=== PATIENT | female | born 1970 | race Caucasian/White ===

== ENCOUNTER 2023-12-10 11:46 | Outpatient (AMB) | payer OTHER, SELFPAY ==
[2023-12-10 11:47] VITALS: BP 116/82; PULSE 84; O2SAT 96; BMI 22.2
--- NOTE | 2023-12-10 11:47 | AM.OFFWIN_ITS ---
Intake Vital Signs 3 12/10/23 11:47 Height 5 ft 4 in Weight 129 lb 6 oz BMI 22.2 BP 116/82 Blood Pressure Location Lt brachial Position Sitting Pulse 84 Pulse Source Pulse Oximeter Pulse Oximetry (%) 96 Oxygen Delivery Method Room Air Intake Visit Reasons: EP- Upper back pain and neck pain Intake Note: Pt presents to the office today for c/o upper back and neck pain that started 4 years ago but keeps flaring up. Pt states her flare up started about 2 days ago when she had to stand for about 2 hours. Patient Tobacco Use Status: Current everyday Tobacco user (Vaping) Allergies aripiprazole [From [facility]] Allergy (Severe, Unverified 12/10/23 11:50) ANAPHYLAXIS divalproex sodium [From DEPAKOTE] Allergy (Unknown, Unverified 12/10/23 11:50) UNKNOWN penicillin V Allergy (Unknown, Verified 12/10/23 11:50) Diarrhea Penicillins Adverse Reaction (Unknown, Verified 12/10/23 11:50) diarrhea From SEROQUEL Allergy (Unknown, Uncoded 12/10/23 11:50) UNKNOWN Medication List - Last Reconciled 12/10/23 by Johanny Lara MD albuterol sulfate 90 mcg/actuation 2 puffs inhalation Q6H cholecalciferol (vitamin D3) (Vitamin D3) 10 mcg PO DAILY gabapentin 800 mg PO BEDTIME hydroxyzine HCl 12.5 - 25 mg PO BEDTIME PRN lamotrigine 50 mg PO BEDTIME levothyroxine (Synthroid) 125 mcg PO DAILY lurasidone (Latuda) 120 mg PO BEDTIME montelukast 10 mg PO QPM sertraline 200 mg PO DAILY simethicone (Anti-Gas Ultra Strength) 0 mg PO sumatriptan succinate 0 mg PO topiramate 50 mg PO DAILY HPI EP- Upper back pain and neck pain 2 HPI0 Details Patient is a 53-year-old female who has a long history of upper back pain Has seen [facility] [place] as well as gone through physical therapy She was standing for 2 hours as her car was being repaired watching it and then it flared up her upper back pain Patient says that only medication that works is baclofen I have sent 30 tablets, patient was instructed to take it only at night as during the day it will make her very tired Pain is located both side around her shoulder blade There is no radiation of pain to arms. On examination she is limited with neck movement due to pain upper back. Hand investment broker is equal both side Review system reveals no difficulty walking, no bowel or bladder issues No fever no chills [facility] Social History Patient Tobacco Use Status: Current everyday Tobacco user (Vaping) Review of Systems Const All systems reviewed & are unremarkable except as noted in HPI and below Physical Exam Vital Signs: Last Vital Signs Pulse 84 12/10/23 11:47 BP 116/82 12/10/23 11:47 Pulse Ox 96 12/10/23 11:47 Oxygen Delivery Method Room Air 12/10/23 11:47 BMI result Body Mass Index 22.2 Const General: no acute distress Orientation/consciousness: patient oriented x3 Eyes General: appearance normal, both eyes and all related structures Resp Effort & Inspection: normal respiratory effort and able to speak in complete sentences Auscultation: clear to auscultation bilaterally Back/Spine/Pelvis Back/spine/pelvis image: 2 1. Site of pain, no pain with spine percussion, range of motion both shoulders intact with some difficulty, neck with limited range of motion Neuro Other: Motor sensory and vascular intact General: patient oriented x3 Psych Mental Status: mental status grossly normal Assessment & Plan Assessment & Plan (1) Upper back pain, chronic: Code(s): M54.9 - Dorsalgia, unspecified; G89.29 - Other chronic pain Plan Patient is a 53-year-old female who has a long history of upper back pain Has seen [facility] [place] as well as gone through physical therapy She was standing for 2 hours as her car was being repaired watching it and then it flared up her upper back pain Patient says that only medication that works is baclofen I have sent 30 tablets, patient was instructed to take it only at night as during the day it will make her very tired Pain is located both side around her shoulder blade There is no radiation of pain to arms. On examination she is limited with neck movement due to pain upper back. Hand investment broker is equal both side Review system reveals no difficulty walking, no bowel or bladder issues No fever no chills Medications: New 2 baclofen 10 mg PO BEDTIME 30 tabs 0RF Upper back pain Coding Level of Care Code Est Pt Level 3 (01422) Diagnoses Upper back pain, chronic M54.9; G89.29
== END 2023-12-10 12:13 | disposition home or self-care (01) ==
PROVIDERS: Visit Provider Internal Medicine
DX: M54.9 Dorsalgia, unspecified (principal); G89.29 Other chronic pain
CPT/HCPCS: 99213

== ENCOUNTER 2024-02-15 10:02 | Emergency (ER) | payer OTHER, SELFPAY ==
[2024-02-15 10:13] VITALS: BP 109/79; PULSE 83; RESP 18; TEMP 36.7; O2SAT 99; BMI 23.3
--- NOTE | 2024-02-15 11:10 | ED_ITS ---
HPI - General Adult General Chief complaint: General Medical Stated complaint: Dizziness, disoriented Time Seen by Provider: 02/15/24 11:01 Source: patient Mode of arrival: ambulatory Limitations: no limitations History of Present Illness HPI narrative: THIS IS A 52 YEARS OLD THE PATIENT PRESENTED TO THE EMERGENCY DEPARTMENT WITH A CHIEF COMPLAINT OF ANXIETY, DIZZINESS, MALAISE ACCORDING TO THE SON SHE HAS BEEN PARANOID WELL. SHE DOES HAVE A HISTORY OF BIPOLAR DISORDER AND HYPOTHYROIDISM. NO REPORTED FEVER NO REPORTED VOMITING OR DIARRHEA Onset (ago): week(s) Radiation: non-radiation Severity: mild Relieving factors: none Exacerbating factors: none Related Data Home Medications ?Medication ?Instructions ?Recorded ?Confirmed lurasidone 120 mg tablet (Latuda) 120 mg PO BEDTIME 01/07/21 12/10/23 albuterol sulfate 90 mcg/actuation 2 puff inhalation Q6H 08/04/21 12/10/23 aerosol inhaler cholecalciferol (vitamin D3) 10 10 mcg PO DAILY 08/04/21 12/10/23 mcg (400 unit) tablet (Vitamin D3) gabapentin 800 mg tablet 800 mg PO BEDTIME 08/04/21 12/10/23 hydroxyzine HCl 25 mg tablet 12.5 - 25 mg PO BEDTIME PRN 08/04/21 12/10/23 lamotrigine 25 mg tablet 50 mg PO BEDTIME 08/04/21 12/10/23 levothyroxine 125 mcg tablet 125 mcg PO DAILY 08/04/21 12/10/23 (Synthroid) montelukast 10 mg tablet 10 mg PO QPM 08/04/21 12/10/23 sertraline 100 mg tablet 200 mg PO DAILY 08/04/21 12/10/23 simethicone 180 mg capsule 0 mg PO 08/04/21 12/10/23 (Anti-Gas Ultra Strength) sumatriptan succinate 25 mg tablet 0 mg PO 08/04/21 12/10/23 topiramate 50 mg tablet 50 mg PO DAILY migraine 08/04/21 12/10/23 Previous Rx's ?Medication ?Instructions ?Recorded baclofen 10 mg tablet 10 mg PO BEDTIME Upper back pain 01/13/24 #30 tabs Allergies Allergy/AdvReac Type Severity Reaction Status Date / Time aripiprazole [From [facility]] Allergy Severe ANAPHYLAXIS Verified 02/15/24 10:16 divalproex sodium Allergy Unknown UNKNOWN Verified 02/15/24 10:16 [From DEPAKOTE] penicillin V Allergy Unknown Diarrhea Verified 02/15/24 10:16 Penicillins AdvReac Unknown diarrhea Verified 02/15/24 10:16 From SEROQUEL Allergy Unknown UNKNOWN Uncoded 12/10/23 11:50 Review of Systems 2 Constitutional: Constitutional: Reports no additional constitutional complaints Eyes: Eyes: Reports no additional eye complaints ENT: Reports system reviewed and no additional complaints, except as documented Cardiovascular: Cardiovascular: Reports no additional cardiovascular complaints Respiratory: Respiratory: Reports no additional respiratory complaints COUNT INCLUDES THE [facility] Past Medical History Attestation statement: The following information was validated with the patient. Source: unable to obtain Reminder: BIPOLAR DISORDER, HYPOTHYROIDISM Social History Social History Patient Tobacco Use Status: Current everyday Tobacco user (Vaping) Advance Directives: No Advance Directives Information Provided: Yes Physical Exam ED Vital Signs: Vital Signs - 24 hr 02/15/24 10:13 02/15/24 12:00 Temperature 98.1 F 97.4 F Pulse Rate 83 85 Respiratory Rate 18 15 Blood Pressure 109/79 110/75 Pulse Oximetry 99 98 Oxygen Delivery Method Room Air Room Air BMI result Body Mass Index 23.3 Const General: cooperative Nutritional Appearance: average body habitus Orientation/consciousness: patient oriented x3 Limitations: no limitations HENMT Head: Yes normal to inspection General nose exam: Normal external nose present Face and sinus: Yes normal facial exam Mouth: Normal oral and palatal mucosa present Throat: Yes posterior oropharynx normal Neck Neck: Yes normal visual inspection Chest Chest palpation & inspection: normal inspection of the chest Resp Effort & Inspection: normal respiratory effort Auscultation: clear to auscultation bilaterally Cardio Jugular venous distension: no JVD Rate: regular rate Rhythm: regular rhythm GI Inspection: Yes normal to inspection Palpation (GI): Soft to palpation, not firm and nontender Auscultation: normal bowel sounds Skin General skin exam: no rashes or lesions noted and elasticity normal Rashes: no rashes Neuro General: patient oriented x3 Course Reevaluation(s) Reevaluation #1: Waiting for crisis eval Time: 13:55 Reevaluation #2: Seen by crisis cleared for discharge Time: 15:00 Medications Administered Discontinued Medications Generic Name Dose Route Start Last Admin Trade Name Freq PRN Reason Stop Dose Admin Potassium Chloride 20 meq 02/15/24 11:52 02/15/24 12:10 Potassium Chloride Er 20 Meq Tab.Er.Prt PO 02/15/24 11:53 20 meq ONCE ONE Administration Medical Decision Making Differential Diagnosis Differential Diagnoses: The differential diagnosis associated with the presentation includes lytes abnormalities,anxiety/bipolar/viaral syndrome Admission/Observation Consideration of admission/observation: Escalation of care including admission/observation considered Lab Data MDM Lab Attestation statement: I reviewed the patient's lab results. 02/15/24 11:21 02/15/24 11:21 Labs: Lab Results 02/15/24 02/15/24 Range/Units 11: 13:04 WBC 6.8 (4.8-10.8) X10*3/uL RBC 3.82 L (4.20-5.50) X10*6/uL Hgb 12.0 (12.0-16.0) g/dl Hct 35.7 L (37.0-47.0) % MCV 93.5 (80.0-98.0) fL MCH 31.4 (27.0-33.0) pg MCHC 33.6 (31.0-35.0) g/dl RDW 12.9 (11.0-16.0) % Plt Count 176 (160-400) X10*3/uL MPV 11.6 (9.4-12.3) fL Immature Gran % (Auto) 0.3 (0.0-0.4) % Neut % (Auto) 62.2 (45-73) % Lymph % (Auto) 26.4 (20-40) % [place] % (Auto) 7.3 (2-11) % Eos % (Auto) 2.2 (0-4) % Baso % (Auto) 1.6 (0-2) % Lymph # (Auto) 1.8 (1.2-4.9) X10*3/uL [place] # (Auto) 0.5 (0.1-1.2) X10*3/uL Eos # (Auto) 0.2 (0.0-0.4) X10*3/uL Baso # (Auto) 0.1 (0.0-0.2) X10*3/uL Abs Immat Gran (auto) 0.02 (0.00-0.03) X10*3/uL Absolute Neuts (auto) 4.2 (2.0-8.3) x10*3/uL Absolute Nucleated RBC 0.000 (0.0-0.012) X10*3/uL Nucleated RBC % (auto) 0.0 (0.0-0.2) /100WBC Sodium 148 H (135-145) mmol/L Potassium 3.2 L (3.3-5.1) mmol/L Chloride 113 H (96-108) mmol/L Carbon Dioxide 24 (22-29) mmol/L Anion Gap 14 (12-20) BUN 10 (9-16) mg/dL Creatinine 1.11 (0.5-1.4) mg/dL Estim Creat Clear Calc 50.6 Estimated GFR 51 Random Glucose 90 (60-115) mg/dL Calcium 10.2 (8.4-10.2) mg/dL Total Bilirubin 0.1 (0.0-1.0) mg/dL AST 19 (5-31) U/L ALT 18 (0-31) U/L Alkaline Phosphatase 36 L (39-117) U/L Troponin I High Sens < 2.7 (<3.5-17.0) ng/L Total Protein 6.2 L (6.5-8.0) g/dL Albumin 4.2 (3.5-5.0) g/dL Urine Color Yellow Urine Appearance Clear Urine pH 7.0 (5.0-9.0) Ur Specific [place] <= 1.005 (1.005-1.025) Urine Protein Negative (Neg-Trace) mg/dL Urine Glucose (UA) Negative (Negative) mg/dL Urine Ketones Negative (Negative) mg/dL Urine Blood Negative (Negative) Urine Nitrite Negative (Negative) Ur Leukocyte Esterase Negative (Negative) Urine RBC 0-2 (0-2) /HPF Urine WBC 0-5 (0-5) /HPF Ur Squamous Epith Cells 0-2 (0-2) /HPF Urine Bacteria None Seen (None Seen) Hyaline Casts 0-2 (0-2) /LPF Urine Opiates Screen Not Detected (Not Detect) Ur Buprenorphine Scrn Not Detected (Not Detect) ng/mL Ur Oxycodone Screen Not Detected (Not Detect) ng/mL Urine Methadone Screen Not Detected (Not Detect) ng/mL Urine Fentanyl Screen Not Detected (Not Detect) Ur Barbiturates Screen Not Detected (Not Detect) Ur Phencyclidine Scrn Not Detected (Not Detect) Ur Amphetamines Screen Not Detected (Not Detect) U Benzodiazepines Scrn Not Detected (Not Detect) Urine Cocaine Screen Not Detected (Not Detect) U Marijuana (THC) Screen Not Detected (Not Detect) Independent Historian Clinical information obtained from an independent historian. History obtained from or confirmed by: Other (son) Chronic Conditions Patient?s care impacted by: Other (bipolar disorder) Discharge Plan Discharge Clinical Impression: Anxiety Patient Disposition: Still a Patient Instructions: Anxiety (ED) Prescriptions: No Action baclofen 10 mg tablet 10 mg PO BEDTIME Qty: 30 2RF Latuda 120 mg tablet 120 mg PO BEDTIME sumatriptan succinate 25 mg tablet 0 mg PO gabapentin 800 mg tablet 800 mg PO BEDTIME lamotrigine 25 mg tablet 50 mg PO BEDTIME hydroxyzine HCl 25 mg tablet 12.5 - 25 mg PO BEDTIME PRN cholecalciferol (vitamin D3) [Vitamin D3] 10 mcg (400 unit) tablet 10 mcg PO DAILY topiramate 50 mg tablet 50 mg PO DAILY levothyroxine [Synthroid] 125 mcg tablet 125 mcg PO DAILY simethicone [Anti-Gas Ultra Strength] 180 mg capsule 0 mg PO sertraline 100 mg tablet 200 mg PO DAILY albuterol sulfate 90 mcg/actuation HFA aerosol inhaler 2 puff inhalation Q6H montelukast 10 mg tablet 10 mg PO QPM Referrals: Kim Meade NP [Primary Care Provider] - 1 day Print Language: Liberian
--- NOTE | 2024-02-15 11:16 | PC.NURSE ---
Pt. states that she believes she is being poisoned by her prescription Synthroid
[2024-02-15 11:26] LABS: MANUAL DIFF FLAG NO
[2024-02-15 11:28] LABS: Basophils Absolute Auto 0.1 X10*3/uL (0.0-0.2); Basophils Percent Auto 1.6 % (0-2); Eosinophils Absolute Auto 0.2 X10*3/uL (0.0-0.4); Eosinophils Percent Auto 2.2 % (0-4); Hematocrit 35.7 % (37.0-47.0); Imm Gran Abs Auto 0.02 X10*3/uL (0.00-0.03); Imm Gran Pct Auto 0.3 % (0.0-0.4); Lymphocytes Absolute Auto 1.8 X10*3/uL (1.2-4.9); Lymphocytes Percent Auto 26.4 % (20-40); Mean Corpuscular HGB Conc 33.6 g/dl (31.0-35.0); Mean Corpuscular Hemoglobin 31.4 pg (27.0-33.0); Mean Corpuscular Volume 93.5 fL (80.0-98.0); Mean Platelet Volume 11.6 fL (9.4-12.3); Monocytes Absolute Auto 0.5 X10*3/uL (0.1-1.2); Monocytes Percent Auto 7.3 % (2-11); Neutrophils Absolute Auto 4.2 x10*3/uL (2.0-8.3); Neutrophils Percent Auto 62.2 % (45-73); Platelet Count 176 X10*3/uL (160-400); Red Blood Count 3.82 X10*6/uL (4.20-5.50); Red Cell Distribution Width 12.9 % (11.0-16.0); White Blood Count 6.8 X10*3/uL (4.8-10.8)
[2024-02-15 11:43] LABS: Alanine Aminotransferase 18 U/L (0-31); Albumin Level 4.2 g/dL (3.5-5.0); Alkaline Phosphatase 36 U/L (39-117); Anion Gap 14 (12-20); Aspartate Amino Transferase 19 U/L (5-31); Bilirubin Total 0.1 mg/dL (0.0-1.0); Blood Urea Nitrogen 10 mg/dL (9-16); Calcium 10.2 mg/dL (8.4-10.2); Carbon Dioxide 24 mmol/L (22-29); Chloride 113 mmol/L (96-108); Creatinine Clr Calc Pharmacy 50.6; Estimated Glomerular Filt Rate 51; Glucose Random 90 mg/dL (60-115); Potassium 3.2 mmol/L (3.3-5.1); Sodium 148 mmol/L (135-145); Total Protein 6.2 g/dL (6.5-8.0)
[2024-02-15 12:00] VITALS: BP 110/75; PULSE 85; RESP 15; TEMP 36.3; O2SAT 98
[2024-02-15] MEDS: Potassium Chloride ER 20 MEQ TAB.ER.PRT PO (12:10)
[2024-02-15 12:30] LABS: Troponin-I High Sensitivity < 2.7 ng/L (<3.5-17.0)
[2024-02-15 13:12] LABS: Appearance Urine Clear; Color Urine Yellow; Glucose Urine UA Negative (Negative); Leukocyte Esterase Urine Negative (Negative); Nitrite Urine Negative (Negative); Specific Gravity - Urine <= 1.005 (1.005-1.025); Urine Blood Negative (Negative); Urine Ketones Negative (Negative); Urine Protein Negative (Neg-Trace)
--- NOTE | 2024-02-15 13:14 | PC.NURSE ---
Pt. stating that she would like to leave at this time. Annette Coffey MD notified. asks this RN to reach out to [facility] prior to discharge to see what their thoughts are. Casi Troy aware, she is speaking with Dorothy Troy, Psych. VALLEZ FILTER OPERATOR re: pt.'s dispo.
[2024-02-15 13:22] LABS: Amphetamine Screen Urine Not Detected (Not Detect); Barbiturates, Urine Not Detected (Not Detect); Benzodiazepines Screen Urine Not Detected (Not Detect); Buprenorphine Scr Not Detected (Not Detect); Cannabinoid Screen Urine Not Detected (Not Detect); Cocaine Screen Urine Not Detected (Not Detect); Fentanyl, urine Not Detected (Not Detect); Methadone Screen, Urine Not Detected (Not Detect); Opiate Screen Urine Not Detected (Not Detect); Oxycodone Screen Urine Not Detected (Not Detect); Phencyclidine Screen Urine Not Detected (Not Detect)
[2024-02-15 13:30] LABS: Bacteria Urine None Seen (None Seen); Hyaline Casts Urine 0-2 /LPF (0-2); RBC Urine 0-2 /HPF (0-2); Squamous Epithelial Cell Urine 0-2 /HPF (0-2); WBC Urine 0-5 /HPF (0-5)
[2024-02-15 15:18] VITALS: BP 110/75; PULSE 85; RESP 15; TEMP 36.3; O2SAT 98
== END 2024-02-15 15:18 | disposition home or self-care (01) ==
PROVIDERS: Emergency Provider Emergency Medicine; PCP Nurse Practitioner Family
DX: R42 Dizziness and giddiness (principal); F41.1 Generalized anxiety disorder; F43.0 Acute stress reaction; Z51.81 Encounter for therapeutic drug level monitoring; Z79.899 Other long term (current) drug therapy
CPT/HCPCS: 36415; 80053; 80307; 81001; 84484; 85025; 99283; S9485

== ENCOUNTER 2024-04-08 06:44 | Emergency (ER) | payer OTHER, SELFPAY ==
--- NOTE | ~2024-04-08 | CT_ITS ---
CLINICAL HISTORY: Intermittent mental status change CT head without IV contrast Comparison: CT/REG/AK/SR - BRAIN WO IV CONTRAST [id number] - 01/04/2019 09:56 AM EDT Findings: The ventricles are normal in configuration. Basilar cisterns intact. No intracranial hemorrhage, mass-effect or midline shift. No extra-axial fluid collections. The parenchyma is unremarkable in attenuation. Herbert-white matter junction preserved. No evidence of acute large vessel or territorial ischemia. Brainstem and cerebellum unremarkable. The calvarium is intact. The imaged portion of the paranasal sinuses are clear. No mastoid effusions. The orbital contents are unremarkable. Impression: 1. No CT evidence of acute intracranial pathology. This document has been electronically signed by: Kyle Leavitt MD on 04/08/2024 09:59:46
--- NOTE | ~2024-04-08 | MR_ITS ---
CLINICAL HISTORY: Stroke symptoms MR Brain without gadolinium Comparison: CT - CT HEAD/BRAIN WO IV CON - 04/08/24 08:[address]/REG/OR/SR - BRAIN WO IV CONTRAST [id number] - 01/04/19 09:56 EDT Findings: No restricted diffusion. No intracranial mass or hemorrhage. No midline shift. No hydrocephalus. Vascular flow voids are intact. Orbital contents are unremarkable. The sinuses and mastoid air cells are clear. No focal bone lesion. IMPRESSION: Unremarkable brain MRI. This document has been electronically signed by: Ada Davis MD on 04/08/2024 15:02:49
--- OUTSIDE RECORDS SUMMARY | 2024-04-08 06:47 | XMS_ITS | Continuity of Care Document ---
Author Organization [employer] Address [address] [place] [address] Care Team Providers Care Business Development Officer Name Role Phone HIM CCA OTHER KEVIN ACEVEDO Primary Care Provider [phone] Assessment Encounter Date Assessment Date Assessment LastModified by Organization Details LastModified Time 03/23/2024 03/23/2024 As noted, we were called to see this patient regarding concerns of shob. Evaluation in the field was performed by my central service technician colleague, as noted above, I provided real-time direction and supervision for this visit. The evaluation revealed 53y F with COPD and 2-3d viral symptoms w cough, congestion, shob and wheezing. VSS, no WOB, no consolidation on exam. Responding to home albuteorl but wants to try neb. COVD and flu negative. Treat as COPD exacerbation. Impression: viral URI, COPD exaerbation Plan: prenisone, duoneb, albuterol neb ampules to pharmacy Primary care, consider f/u to confirm improvement in ~3-5d if able Disposition: We discussed the diagnostic uncertainty of home visits and the risk associated with this. In this case, the patient and I felt this to be an acceptable and reasonable amount of risk given the benefit of avoiding an ED visit. We discussed the need to seek care urgently/emergen tly in the setting of any new or worsening serious symptoms, particularly fever, chills, worsening shob, dizziness, chest pain, [facility] available 03/23/2024 17:52:33 Plan of Treatment Reminders Order Date Submit Date Provider Last Modified By Organization Details Last Modified Time Details Appointments None recorded. Lab None recorded. Referral None recorded. Procedures None recorded. Surgeries None recorded. Imaging None recorded. Medication Orders prednisone 20 mg tablet 2023 024 [facility] #[id number], [address], [place], [id number], 4 17:50:55 albuterol sulfate 2.5 mg/3 mL (0.083 %) solution for nebulizatio n 2023 024 [facility] #[id number], [address], [place], [id number], 4 17:51:04 albuterol sulfate 2.5 mg/3 mL (0.083 %) solution for nebulizatio n 2023 024 [facility] #[id number], [address], [place], [id number], 4 17:50:55 prednisone 20 mg tablet 2023 024 [facility] #[id number], [address], [place], [id number], 4 17:50:55 Patient TargetsNo targets recorded. Patient InstructionsNo instructions recorded. Reason for Referral None Reported. Medical Equipment None Reported. Allergies Allergen ID Allergen Name Allergen Category Reaction Reaction Severity Criticality Documentation Date Start Date Code Code System Note Provider Name and Address Organization Details Recorded Time 7471 Medicinal product containin g penicilli n and acting as antibacte rial agent (product) medicatio n Not available Not available Not available 02/08/2024 78239 05 SNOMED Not Available [facility] - production 4 03:37:45 Medications Name Sig Start Date Stop Date Status Note LastModified by Organization Details LastModified Time calcium/d3 tab 600-800 active Not Available Not Available Not Available calcium 600-vit d3 800 tablet TAKE 1 TABLET BY MOUTH TWICE A DAY active Not Available Not Available No t Available celecoxib 200 mg capsule TAKE 1 CAPSULE BY MOUTH EVERY DAY active Not Available Not Available No t Available buspirone 5 mg tablet TAKE 1 TABLET BY MOUTH EVERY DAY active Not Available Not Available No t Available prednisone 10 mg tablet TAKE 5 TABS ON DAY 1 AND DAY 2, 4 TABS ON DAY 3, 3 TABS ON DAY 4, 2 TABS ON DAY 5, 1 TAB ON DAY 6 active Not Available Not Available No t Available gabapentin 600 mg tablet TAKE 1 TABLET BY MOUTH TWICE A DAY active Not Available Not Available No t Available nabumetone 750 mg tablet TAKE 1 TABLET BY MOUTH TWICE A DAY FOR 10 DAYS active Not Available Not Available No t Available albuterol sulfate 2.5 mg/3 mL (0.083 %) solution for nebulization Inhale 3 mL 3 times a day by nebulizatio n route. active Not Available Not Available No t Available simethicone 180 mg capsule TAKE 1 CAPSULE BY MOUTH TWICE DAILY. active Not Available Not Available No t Available prazosin 1 mg capsule TAKE 1 CAPSULE BY MOUTH EVERY DAY active Not Available Not Available No t Available sumatriptan 25 mg tablet TAKE 1 TABLET BY MOUTH EVERY DAY NEEDED MIGRAINE HEADACHES active Not Available Not Available No t Available Synthroid 125 mcg tablet TAKE 1 TABLET BY MOUTH EVERY DAY active Not Available Not Available No t Available alendronate 70 mg tablet PLEASE SEE ATTACHED FOR DETAILED DIRECTIONS active Not Available Not Available N ot Available gabapentin 400 mg capsule TAKE 1 CAPSULE BY MOUTH ONCE A DAY TAKE GABAPENTIN 500 MG DAILY AND 900 MG AT BEDTIME active Not Available Not Available No t Available sertraline 100 mg tablet TAKE 1 TABLET BY MOUTH ONCE A DAY. TOTAL DAILY ZOLOFT 150 MG DAILY active Not Available Not Available No t Available clonazepam 1 mg tablet TAKE 1 TABLET BY MOUTH TWICE A DAY MAY ALSO TAKE 1/2 TAB BY MOUTH DAILY NEEDED FOR ANXIETY active Not Available Not Available Not Available risperidone 0.25 mg tablet TAKE 1 TABLET BY MOUTH TWICE A DAY active Not Available Not Available No t Available hydroxyzine HCl 50 mg tablet TAKE 1 TABLET BY MOUTH TWICE A DAY NEEDED FOR ANXIETY active Not Available Not Available No t Available olanzapine 2.5 mg tablet TAKE 1 TABLET BY MOUTH EVERYDAY AT BEDTIME active Not Available Not Available No t Available bupropion HCl SR 100 mg tablet,12 hr sustained-re lease TAKE 1 TABLET BY MOUTH ONCE DAILY. active Not Available Not Available No t Available lamotrigine 25 mg tablet TAKE 3 TABLETS BY MOUTH EVERY NIGHT active Not Available Not Available No t Available meloxicam 7.5 mg tablet TAKE 1 TABLET BY MOUTH DAILY MAY INCREASE TO 2 TABLETS IF LITTLE EFFECT, DO NOT EXCEED 15MG DAILY active Not Available Not Available N ot Available Vitamin D3 10 mcg (400 unit) tablet TAKE 1 TABLET BY MOUTH EVERY DAY active Not Available Not Available No t Available famotidine 20 mg tablet active Not Available Not Available Not Available gabapentin 800 mg tablet TAKE 1 TABLET BY MOUTH AT BEDTIME. active Not Available Not Available No t Available baclofen 10 mg tablet TAKE 1 TABLET BY MOUTH AT BEDTIME FOR UPPER BACK PAIN active Not Available Not Available No t Available diphenhydram ine 25 mg capsule TAKE 1-2 CAPSULES BY MOUTH AT BEDTIME NEEDED active Not Available Not Available No t Available montelukast 10 mg tablet TAKE 1 TABLET BY MOUTH EVERY EVENING active Not Available Not Available No t Available hydroxyzine HCl 25 mg tablet TAKE 1 TABLET BY MOUTH TWICE A DAY NEEDED FOR ANXIETY active Not Available Not Available No t Available mupirocin 2 % topical ointment APPLY A THIN FILM NARES BOTH DAILY IN THE MORNING active Not Available Not Available Not Available gabapentin 100 mg capsule TAKE 1 CAPSULE BY MOUTH TWICE A DAY GABAPENTIN 500 MG BY MOUTH DAILY AND 900 MG AT BEDTIME active Not Available Not Available N ot Available albuterol sulfate HFA 90 mcg/actuatio n aerosol inhaler INHALE 2 PUFFS INTO THE LUNGS EVERY 6 HOURS active Not Available Not Available No t Available ondansetron 4 mg disintegrati ng tablet TAKE 1 TABLET BY MOUTH EVERY 8 HOURS NEEDED FOR NAUSEA/VOMI TING active Not Available Not Available No t Available topiramate 100 mg tablet TAKE 1 TABLET BY MOUTH ONCE A DAY FOR MIGRAINES active Not Available Not Available No t Available fluticasone propionate 50 mcg/actuatio n nasal spray,suspen haylee INSTILL 1 SPRAY INTO BOTH NOSTRILS TWICE DAILY active Not Available Not Available Not Available sertraline 50 mg tablet TAKE 1 TABLET BY MOUTH ONCE A DAY. TOTAL DAILY ZOLOFT 150 MG DAILY active Not Available Not Available No t Available risperidone 1 mg tablet TAKE 1 TABLET BY MOUTH EVERY DAY AT NIGHT active Not Available Not Available No t Available lamotrigine 100 mg tablet TAKE 1 TABLET BY MOUTH EVERY DAY AT NIGHT active Not Available Not Available No t Available risperidone 0.5 mg tablet active Not Available Not Available Not Available prazosin 2 mg capsule TAKE 2 CAPSULES BY MOUTH EVERY DAY AT BEDTIME active Not Available Not Available No t Available naproxen 500 mg tablet TAKE 1 TABLET BY MOUTH TWICE A DAY active Not Available Not Available No t Available cyclobenzapr ine 5 mg tablet TAKE 1-2 TAB UP TO 2 TIMES A DAY NEEDED FOR MUSCLE SPASMS active Not Available Not Available No t Available topiramate 50 mg tablet TAKE 1 TABLET BY MOUTH ONCE A DAY FOR MIGRAINES. active Not Available Not Available N ot Available tizanidine 2 mg capsule TAKE 1 TABLET BY MOUTH TWICE A DAY NEEDED FOR MUSCLE SPASM active Not Available Not Available No t Available Vitamin D3 10 mcg (400 unit) capsule TAKE 1 CAPSULE BY MOUTH EVERY DAY active Not Available Not Available No t Available Gavilax 17 gram/dose oral powder PLEASE SEE ATTACHED FOR DETAILED DIRECTIONS active Not Available Not Available N ot Available lurasidone 80 mg tablet TAKE 1 TABLET BY MOUTH EVERY NIGHT WITH MEALS TAKE WITH LATUDA 20 MG FOR TOTAL OF 100 MG active Not Available Not Available No t Available lurasidone 20 mg tablet TAKE 1 TABLET BY MOUTH ONCE A DAY TAKE WITH LATUDA 80 MG TOTAL DAILY DOSE LATUDA 100 MG DAILY active Not Available Not Available No t Available lurasidone 120 mg tablet TAKE 1 TABLET BY MOUTH EVERY NIGHT WITH A MEAL active Not Available Not Available No t Available calcium 600 mg (as carbonate)-v itamin D3 20 mcg (800 unit) tablet TAKE 1 TABLET BY MOUTH TWICE A DAY active Not Available Not Available No t Available Stimulant Laxative Plus 8.6 mg-50 mg tablet TAKE 3 TABLETS BY MOUTH EVERY DAY AT BEDTIME active Not Available Not Available No t Available Vitals Date Recorded Oxygen saturation Oxygen saturation in Arterial blood by Pulse oximetry Heart rate Body height Respiratory rate Body weight Body temperature Systolic blood pressure Diastolic blood pressure Provider Name and Address Organization Details Last Updated DateTime 4 96 % 96 % 82 /min 162.56 cm 16 /min 04874.9 2 g 98.5 [degF] 104 mm[Hg] 76 mm[Hg] Not Available [email or web address] 4 17:45:57 Social History None recorded. Functional Status None recorded. Mental Status None recorded. Family History Nothing Reported. Medical History No medical history recorded. Gynecological HistoryNo gynecological history recorded. Obstetrics History GPAL:G 0 P 0 0 0 0 Past Encounters Encounter ID Performer Location Encounter Start Date Encounter Closed Date Diagnosis/Indication Diagnosis SNOMED-CT Code Diagnosis ICD10 Code [id number] Lory Awad MD [facility] [address] [place] [address] 03/23/2024 17:45:54 03/23/2024 22:58:00 Acute exacerbation of chronic obstructive pulmonary disease 907959119 J44.1 Viral uppe r respiratory tract infection 289600686 J06.9 Health Concerns Section Related Observation LastModified by Organization Detai ls LastModified Time None Recorded Concern Status LastModified by Organization Details LastModified Time None Recorded Payers Encounter Date Sequence Insurance Name Policy Number Policy Adkins Covered Member ID Adkins Member ID Guarantor Name 03/23/2024 1 [facility] - DOS ON OR AFTER 2022 - DUAL ELIGIBLE - [facility] [employer] AND ONE [employer] (MEDICARE REPLACEMENT/ADV ANTAGE - HMO) Susy Benavides [id number] Susy Benavides Notes Date Note Type Note Provider Name and Address Organization Details Recorded Time 03/23/2024 text/html [facility] Nurse Triage Notes (Joi Sinclair - RN): Reason For Request: pt states she has broncitis and her throat is very sore Patient Reports: Sputum increase ; Cough; Shortness of breath with exertion; Pain with inspirationDenies: Increased work of breathing/labored ? with or without fever Unable to speak in full sentences without distress Discoloration of skin -cyanosis Needs to sleep sitting up, can? t catch breath Shortness of breath in setting of confusion Cough, fever greater than 2 days Lower extremity swelling History of asthma, increased use of inhaler COPD COVID Exposure Chief Complaints: Cough, Sore throatPMH: Chronic BronchitisComments : Patient concerned she has bronchitis again. Developed productive cough 2 days ago. Increased sputum production yesterday. Patient c/o sore throat today. Patient felt like she had a fever yesterday. States she felt confused/delusiona l yesterday. Taking Dayquil/Nyquil. Report shortness of breath with talking. Unable to take a deep breath. [facility] HPI: Sub Acute Care Nurse Organization Information for Brian Saenz Business Legal Name: [employer]? ? Address: [address] [place] [address], Certified Adaptive Physical Educator: Clemente Crenshaw MD CLIA No.: [id number] Sub Acute Care Nurse POC Test Results from Brian Saenz Rapid influenza antigen (17:53:41) Flu: - Rapid COVID antigen (17:53:42) COVID: - Rapid strep test (17:53:45) Strep: - .................. .................. .................. .................. .................. .................. .................. ............... Sub Acute Care Nurse Note From Brian Saenz[facility] Pt presents complaining of 2 days of productive cough and SOB. Pt reports sick contact with unspecified illness. Pt uncertain of color of phlegm. No fevers she is aware of. Pt has been taking dayquil and nyquil with minor improvement. V/S taken as listed. Pt afebrile. Pt swabbed for flu covid and strep with all coming back negative. Mild wheezes and rhonchi on lung exam. Consulted with [facility] Dr. Awad who ordered duoneb treatment and 40 mg of prednisone both given on scene. Pt reports improvement in breathing after treatment. Rx sent to patients pharmacy. Reviewed red flags for ED. Pt education provided. .................. .................. .................. .................. .................. .................. .................. ............... [facility] Consulted: Lory Awad .................. .................. .................. .................. .................. .................. .................. ............... Disposition: Fulfilled Lory Awad MD [address] [facility], [place], [address], [facility] - [place] RIVAS 03/23/2024 19:08:41 OBGyn Episode No OBEpisode recorded.
--- OUTSIDE RECORDS SUMMARY | 2024-04-08 06:47 | XMS_ITS | Continuity of Care Document ---
Author Organization [facility] [place] [facility] Address [address] [place] [address]- Care Team Providers Care Digital Coordinator Name Role Phone Halina PAROLE SUPERVISORKim Primary Care Physician [phone] Encounter [facility] Date(s): 02/11/24 - 03/15/24 [facility] [place] Adult [address] [place] [address]- Encounter Diagnosis Lower leg edema(Discharge Diagnosis) - 02/13/24 Bipolar disorder NOS(Discharge Diagnosis) - 02/13/24 Autoimmune hypothyroidism(Discharge Diagnosis) - 02/13/24 Tobacco abuse(Discharge Diagnosis) - 02/13/24 Attending Physician: Not on Staff, Attending MD Encounter Type: Pre Office Visit Allergies, Adverse Reactions, Alerts Substance Criticality Severity Reaction Reaction Severity Status penicillin rash Active alendronate Active Depakote Active Seroquel Active Nicoderm Active Trileptal 1 Active Abilify Active LORazepam dizzy Active 1muscle twitching Immunizations Given and Recorded Vaccine Date Status Refusal Reason influenza virus vaccine, inactivated 1 04/19/23 Gi [place] influenza virus vaccine, inactivated 2 03/30/22 Gi [place] influenza virus vaccine, inactivated 02/05/21 Give n influenza virus vaccine, inactivated 02/19/20 Give n influenza virus vaccine, inactivated 12/27/18 Give n influenza virus vaccine, inactivated 3 02/01/18 Gi [place] influenza virus vaccine, inactivated 4 01/06/17 Gi [place] influenza virus vaccine, inactivated 12/25/13 Give n tetanus-diphtheria toxoids (Td) 5 10/14/22 Given pneumococcal 20-valent conjugate vaccine 6 10/14/22 Given SARS-CoV-2 (COVID-19) Ad26 vaccine 09/13/20 Record ed pneumococcal 23-valent vaccine 7 02/01/18 Given tetanus/diphtheria/pertussis, acel(Tdap) 06/07/12 Given influ virus vac, H1N1, inactive(oldterm) 8 04/19/12 Given hepatitis B pediatric vaccine 11/27/10 Given hepatitis B pediatric vaccine 10/28/10 Given Measles/Mumps/Rubella Virus Vaccine 10/28/10 Given Influenza Inactive (IM) (oldterm) 9 05/18/08 Given Tetanus Toxoid Vaccine (oldterm) 04/12/04 Given 1Result Comment: [id number] Checklist completed 2Result Comment: 35445-309-36 3Result Comment: [02/01/2018] FLU 03808-832-70 4Result Comment: [01/06/2017] [facility] [address]204 317 02 5Result Comment: [id number] 6Result Comment: [id number] 7Result Comment: [02/01/2018] PNEUMO [id number] 8Admin Note: declines 9Admin Note: not intromuscular rcvd elsewhere Problem List Condition Confirmation Course Effective Dates Status H ealth Status Informant Autoimmune hypothyroidism Confirmed Active Back pain Confirmed Active Bipolar disorder NOS Confirmed Active Cervical radiculopathy Confirmed Active Chronic constipation Confirmed Active Chronic tension headaches Confirmed Active GERD (gastroesophageal reflux disease) Confirmed Active Generalized anxiety disorder Confirmed Active H/O: hysterectomy Confirmed Active Irritable bowel syndrome with constipation Confirmed Active Asthma, mild intermittent Confirmed Active Osteoporosis Confirmed Active Tobacco abuse 1 Confirmed Active 1counsel many times, nmy2bkin kit Diagnosis Diagnosis Type Effective Dates Health Status Clinical Service Informant Lower leg edema Discharge Diagnosis 02/13/24 Bipolar disorder NOS Discharge Diagnosis 02/13/24 Autoimmune hypothyroidism Discharge Diagnosis 02/13/24 Tobacco abuse Discharge Diagnosis 02/13/24 Social History Social History Type Response Smoking Status Smokeless tobacco us er within last 30 days; Other: switched from cigarettes to vaping in 2017.; Tobacco use times per day: 0.5-1 PPD; Number of years: 14; entered on: 03/16/19 Sex Sex Representation Female (finding) Patient Care team information Care Team Personnel Name: Kim Meade NP Position: [facility] PCO Associate Professional Member Role: PCP Address: [address] [place] [address]- Telecom: Care Team Related Persons Name: MARIAH LOPEZ Name: MARY WARD Name: SARAHI WARD Name: ULICES ABARCA Name: OBDULIA ABARCA Insurance Providers Guarantor name: DILLON WARD Health Plan Information #: 1 Payer: [facility]ONE CARE Member Number: [id number] Policy Number: NA Group Number: [facility] Plan Information #: 2 Payer: [facility] Member Number: [id number] Policy Number: NA Group Number: NA
--- OUTSIDE RECORDS SUMMARY | 2024-04-08 06:47 | XMS_ITS | Continuity of Care Document ---
Author Organization [facility] Fredy [facility] Address [address] [place] [address]- Care Team Providers Care Aquatic Physiotherapist Name Role Phone Halina RELEASE SPECIALIST, Kim Ascencio Primary Care Physician [place] [facility] [place] 02/18/24 - 03/19/24 [facility] Adult [address] [place] [address]- Encounter Type: Triage Allergies, Adverse Reactions, Alerts Substance Criticality Severity Reaction Reaction Severity Status penicillin rash Active alendronate Active Seroquel Active Nicoderm Active Depakote Active Trileptal 1 Active Abilify Active LORazepam [...] Toxoid Vaccine (oldterm) 04/12/04 Given 1Result Comment: [id number] Checklist completed 2Result Comment: 29732-070-67 3Result Comment: [02/01/2018] FLU 50326-124-36 4Result Comment: [01/06/2017] [facility] [address] 317 02 5Result Comment: [id number] 6Result Comment: [id number] 7Result Comment: [02/01/2018] PNEUMO [id number] 8Admin Note: declines 9Admin Note: not intromuscular [...] abuse 1 Confirmed Active 1counsel many times, [id number] kit Social History Social History Type Response Smoking Status Smokeless tobacco us er within last 30 days; Other: switched from cigarettes to vaping in 2017.; Tobacco use times per day: 0.5-1 PPD; Number of years: 14; entered on: 03/16/19 Sex Sex Representation Female (finding) Patient Care team information Care Team Personnel Name: Kim Meade NP Position: S PCO Associate Professional Member Role: PCP Address: [address] [place] [address]- Telecom: Care Team Related Persons Name: MARIAH LOPEZ Name: MARY WARD Name: SARAHI WARD Name: ULICES ABARCA Name: OBDULIA ABARCA Insurance Providers Guarantor name: DILLON WARD [facility] Plan Information #: 1 Payer: [facility] CARE ALLIANCE/ONE CARE Member Number: NA Policy Number: NA Group Number: NA
--- OUTSIDE RECORDS SUMMARY | 2024-04-08 06:47 | XMS_ITS | Continuity of Care Document ---
Author Organization [facility] Fredy [facility] Address [address] [place] [address]- Care Team Providers Care Forensic Examiner Name Role Phone Halina EXHAUST AND MUFFLER FITTER, Kim Ascencio Primary Care Physician [phone] Encounter [facility] Date(s): 02/14/24 - 03/15/24 [facility] Adult [address] [place] [address]- Encounter Type: Triage Allergies, Adverse Reactions, Alerts [...] Toxoid Vaccine (oldterm) 04/12/04 Given 1Result Comment: [id number] Checklist completed 2Result Comment: [id number] 3Result Comment: [02/01/2018] FLU 13467-828-36 4Result Comment: [01/06/2017] [facility] [address]364 317 02 5Result Comment: [id number] 6Result Comment: [id number] 7Result Comment: [02/01/2018] PNEUMO [id number] 8Admin Note: declines 9Admin Note: not intromuscular [...] abuse 1 Confirmed Active 1counsel many times, [id number] kit Social History Social History Type Response [...] PCO Associate Professional Member Role: PCP Address: [address] [place] [address] Telecom: Care Team Related Persons Name: MARIAH LOPEZ Name: MARY WARD Name: SARAHI WARD Name: ULICES ABARCA Name: OBDULIA ABARCA Insurance Providers Guarantor name: DILLON WARD [facility] Plan Information #: 1 Payer: [facility] CARE ALLIANCE/ONE CARE Member Number: NA Policy Number: NA Group Number: NA
--- OUTSIDE RECORDS SUMMARY | 2024-04-08 06:47 | XMS_ITS | Continuity of Care Document ---
Author Organization [facility] Address [address] [place] [address]- Care Team Providers Care Press Tender Smoke Signal Name Role Phone Halina DRILL DOCTORKim Primary Care Physician Encounter [facility] Date(s): 02/28/24 - 03/29/[address] [address] Encounter Type: Triage Allergies, Adverse Reactions, Alerts [...] Toxoid Vaccine (oldterm) 04/12/04 Given 1Result Comment: [id number] Checklist completed 2Result Comment: 13239-863-56 3Result Comment: [02/01/2018] FLU 36075-906-17 4Result Comment: [01/06/2017] [facility] [address] 317 02 5Result Comment: [id number] 6Result Comment: [id number] 7Result Comment: [02/01/2018] PNEUMO [id number] 8Admin Note: declines 9Admin Note: not intromuscular [...] abuse 1 Confirmed Active 1counsel many times, [id number] kit Social History Social History Type Response [...] PCO Associate Professional Member Role: PCP Address: [address] [place] [address] Telecom: Care Team Related Persons Name: MARIAH LOPEZ Name: MARY WARD Name: SARAHI WARD Name: ULICES ABARCA Name: OBDULIA ABARCA Insurance Providers Guarantor name: DILLON WARD [facility] Plan Information #: 1 Payer: [facility] CARE ALLIANCE/ONE CARE Member Number: NA Policy Number: NA Group Number: NA
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
[2024-04-08 06:50] VITALS: BP 129/78; PULSE 93; RESP 16; TEMP 36.6; O2SAT 99; BMI 22.7
--- NOTE | 2024-04-08 06:54 | ECG_ITS ---
Test Reason : UNWELL Blood Pressure : / mmHG Vent. Rate : 082 BPM Atrial Rate : 082 BPM P-R Int : 134 ms QRS Dur : 072 ms QT Int : 346 ms P-R-T Axes : -10 050 021 degrees QTc Int : 404 ms Normal sinus rhythm Normal ECG When compared with ECG of 10-OCT-2016 18:21, Vent. rate has increased BY 29 BPM Referred By: Generic ED Physician Electronically Signed By:Manuel Owen
[2024-04-08 07:16] LABS: MANUAL DIFF FLAG NO
[2024-04-08 07:21] LABS: Basophils Absolute Auto 0.1 X10*3/uL (0.0-0.2); Basophils Percent Auto 1.9 % (0-2); Eosinophils Absolute Auto 0.1 X10*3/uL (0.0-0.4); Hematocrit 40.7 % (37.0-47.0); Hemoglobin 13.4 g/dl (12.0-16.0); Imm Gran Abs Auto 0.02 X10*3/uL (0.00-0.03); Imm Gran Pct Auto 0.3 % (0.0-0.4); Lymphocytes Absolute Auto 1.6 X10*3/uL (1.2-4.9); Lymphocytes Percent Auto 26.9 % (20-40); Mean Corpuscular HGB Conc 32.9 g/dl (31.0-35.0); Mean Corpuscular Hemoglobin 29.8 pg (27.0-33.0); Mean Corpuscular Volume 90.4 fL (80.0-98.0); Mean Platelet Volume 10.7 fL (9.4-12.3); Monocytes Absolute Auto 0.4 X10*3/uL (0.1-1.2); Monocytes Percent Auto 5.9 % (2-11); Neutrophils Absolute Auto 3.7 x10*3/uL (2.0-8.3); Platelet Count 230 X10*3/uL (160-400); Red Cell Distribution Width 12.4 % (11.0-16.0); White Blood Count 5.9 X10*3/uL (4.8-10.8)
[2024-04-08 07:29] LABS: Anion Gap 10 (12-20); Blood Urea Nitrogen 12 mg/dL (9-16); Calcium 9.4 mg/dL (8.4-10.2); Carbon Dioxide 27 mmol/L (22-29); Chloride 109 mmol/L (96-108); Estimated Glomerular Filt Rate 57; Glucose Random 64 mg/dL (60-115); Potassium 3.4 mmol/L (3.3-5.1); Sodium 143 mmol/L (135-145)
[2024-04-08 07:39] LABS: Troponin-I High Sensitivity < 2.7 ng/L (<3.5-17.0)
[2024-04-08 07:43] VITALS: BP 116/77; PULSE 78; RESP 15; TEMP 36.4; O2SAT 98
--- NOTE | 2024-04-08 08:17 | ED.NEUROSD ---
HPI - Neuro Symptoms/Deficit General Chief Complaint: Neuro Symptoms/Deficit Stated Complaint: possible stroke Time Seen by Provider: 04/08/24 08:04 Source: patient Mode of arrival: ambulatory Limitations: no limitations History of Present Illness ED Provider: DR. New HPI Narrative: 53-year-old female came in for evaluation of multiple neurological symptoms the patient started to experience for 1-2 weeks now. Patient stated that she started to notice that she has difficulty to remember things and she gets periods of confusion and lack of concentration. With numbness of the right side of the face for about 2 weeks now. Patient is concerned because that is not her normal baseline. Otherwise patient has no headache, no blurry vision, no double vision, no weakness, numbness. Related Data Home Medications ?Medication ?Instructions ?Recorded ?Confirmed lurasidone 120 mg tablet (Latuda) 120 mg PO BEDTIME 01/07/21 12/10/23 albuterol sulfate 90 mcg/actuation 2 puff inhalation Q6H 08/04/21 12/10/23 aerosol inhaler cholecalciferol (vitamin D3) 10 10 mcg PO DAILY 08/04/21 12/10/23 mcg (400 unit) tablet (Vitamin D3) gabapentin 800 mg tablet 800 mg PO BEDTIME 08/04/21 12/10/23 hydroxyzine HCl 25 mg tablet 12.5 - 25 mg PO BEDTIME PRN 08/04/21 12/10/23 lamotrigine 25 mg tablet 50 mg PO BEDTIME 08/04/21 12/10/23 levothyroxine 125 mcg tablet 125 mcg PO DAILY 08/04/21 12/10/23 (Synthroid) montelukast 10 mg tablet 10 mg PO QPM 08/04/21 12/10/23 sertraline 100 mg tablet 200 mg PO DAILY 08/04/21 12/10/23 simethicone 180 mg capsule 0 mg PO 08/04/21 12/10/23 (Anti-Gas Ultra Strength) sumatriptan succinate 25 mg tablet 0 mg PO 08/04/21 12/10/23 topiramate 50 mg tablet 50 mg PO DAILY migraine 08/04/21 12/10/23 Previous Rx's ?Medication ?Instructions ?Recorded baclofen 10 mg tablet 10 mg PO BEDTIME Upper back pain 01/13/24 #30 tabs Allergies Allergy/AdvReac Type Severity Reaction Status Date / Time aripiprazole [From ABILIFY] Allergy Severe ANAPHYLAXIS Verified 04/08/24 06:52 divalproex sodium Allergy Unknown UNKNOWN Verified 04/08/24 06:52 [From DEPAKOTE] penicillin V Allergy Unknown Diarrhea Verified 04/08/24 06:52 Penicillins AdvReac Unknown diarrhea Verified 04/08/24 06:52 From SEROQUEL Allergy Unknown UNKNOWN Uncoded 04/08/24 06:52 Review of Systems Review of Systems: All other systems are reviewed and are negative Constitutional: Reports as per HPI and Reports no additional constitutional complaints Eyes: Reports as per HPI and Reports no additional eye complaints Reports system reviewed and no additional complaints, except as documented Cardiovascular: Reports as per HPI and Reports no additional cardiovascular complaints Respiratory: Reports as per HPI and Reports no additional respiratory complaints Gastrointestinal: Reports as per HPI and Reports no additional gastrointestinal complaints Genitourinary: Reports no additional female genitourinary complaints Musculoskeletal: Reports no additional musculoskeletal complaints Skin/Breast: Reports system reviewed and no additional complaints, except as docu Psychiatric: Reports no additional psychiatric complaints Endocrine: Reports no additional endocrine complaints Hematologic/Lymphatic: Reports no additional hematologic/lymphatic complaints Allergic/Immunologic: Reports no additional allergic/immunologic complaints Reports system reviewed and no additional complaints, except as documented and Reports Abnormal speech present COUNTS INCLUDE 234 BEDS AT THE [facility] Social History Social History Patient Tobacco Use Status: Current everyday Tobacco user (Vaping) Smoked in Last 30 Days: No Use of substances other than those prescribed or required for medical reasons: No Advance Directives: No Advance Directives Information Provided: Yes Do you have a plan to hurt others: No Plan Physical Exam Vital Signs: Vital Signs: Last Vital Signs Temp 97.6 F 04/08/24 13:07 Pulse 65 04/08/24 13:07 Resp 15 04/08/24 13:07 BP 129/88 04/08/24 13:07 Pulse Ox 99 04/08/24 13:07 O2 Del Method Room Air 04/08/24 13:07 BMI result Body Mass Index 22.7 Vital signs have been reviewed and appear to be correct. Blood pressure elevated. Heart rate normal. Respiratory rate normal. Temperature normal. Oxygen saturation normal. Appearance: Alert. Oriented X3. No acute distress. Head: Normal external exam. Normocephalic. Atraumatic. No Lozano signs noted. No raccoon eyes noted Eyes: PERRLA. EOMI. Conjunctiva and sclera normal. Eyelids normal. ENT: TM's Normal. Pharynx normal. Uvula midline. Moist mucous membranes. No trismus noted. No drooling noted. No muffled voice noted. Neck: Normal inspection. Neck supple. FROM. No adenopathy. Thyroid Normal. No meningeal signs. No neck mass noted. CVS: Normal heart rate and rhythm. Heart sound normal. No murmurs noted. Pulses normal throughout. Respiratory: No respiratory distress. Painless inspiration. Breath sounds normal. No wheezes/rales/rhonchi noted. Chest nontender. No accessory muscle usage noted or decreased air movement noted. Abdomen: Soft and nontender. Bowel sounds normal in all 4 quadrants. No distention noted. No organomegaly noted. No visible injury noted. Back: No CVA tenderness. Full range of motion noted. Skin: Skin warm and dry. Normal skin color. Normal skin turgor. No rashes/lesions/lacerations noted. Extremities: No lower extremity edema. Extremities exhibit normal range of motion. Extremities nontender. Neuro: Mental status: Normal attention, orientation, memory, and affect. Cranial nerves: Pupils are equal, round and reactive to light, EOMI, visual rubio are fall, face is symmetric, facial sensations are normal. Motor examination normal muscle tone, strength to 4 extremities. DTR are +2, planter's are flexor. Sensory exam; normal coordination, no ataxia, gait stable. Cerebellar exam: Oltafw-qe-sfch and qilq-zd-tnip is normal. Extrapyramidal system: No tremors, no rigidity with normal facial expressions. Pronator drift not present Course Reevaluation(s) Reevaluation #1: 53-year-old female came in for concern of memory issue and lack of concentration, there is a concern of TIA versus stroke, patient has a normal neuro exam, GCS of 15, NIH score of 0, had a CT head which was unremarkable waiting for the MRI to rule out acute stroke patient is AAO x3 understands the risk of leaving against medical advice including major neurological deficit and even was discussed with the patient patient still wanted to be discharged, will sign AMA. Time: 13:21 Medical Decision Making Differential Diagnosis Differential Diagnoses: The differential diagnosis associated with the presentation includes (CVA, intracranial bleed, electrolyte derangement, early dementia, severe anemia.) Admission/Observation Consideration of admission/observation: Escalation of care including admission/observation considered Lab Data MDM Lab Attestation statement: I reviewed the patient's lab results. 04/08/24 07:11 04/08/24 07:11 Labs: Lab Results 04/08/24 Range/Units 07:11 WBC 5.9 (4.8-10.8) X10*3/uL RBC 4.50 (4.20-5.50) X10*6/uL Hgb 13.4 (12.0-16.0) g/dl Hct 40.7 (37.0-47.0) % MCV 90.4 (80.0-98.0) fL MCH 29.8 (27.0-33.0) pg MCHC 32.9 (31.0-35.0) g/dl RDW 12.4 (11.0-16.0) % Plt Count 230 D (160-400) X10*3/uL MPV 10.7 (9.4-12.3) fL Immature Gran % (Auto) 0.3 (0.0-0.4) % Neut % (Auto) 63.0 (45-73) % Lymph % (Auto) 26.9 (20-40) % Avery % (Auto) 5.9 (2-11) % Eos % (Auto) 2.0 (0-4) % Baso % (Auto) 1.9 (0-2) % Lymph # (Auto) 1.6 (1.2-4.9) X10*3/uL Avery # (Auto) 0.4 (0.1-1.2) X10*3/uL Eos # (Auto) 0.1 (0.0-0.4) X10*3/uL Baso # (Auto) 0.1 (0.0-0.2) X10*3/uL Abs Immat Gran (auto) 0.02 (0.00-0.03) X10*3/uL Absolute Neuts (auto) 3.7 (2.0-8.3) x10*3/uL Absolute Nucleated RBC 0.000 (0.0-0.012) X10*3/uL Nucleated RBC % (auto) 0.0 (0.0-0.2) /100WBC Sodium 143 (135-145) mmol/L Potassium 3.4 (3.3-5.1) mmol/L Chloride 109 H (96-108) mmol/L Carbon Dioxide 27 (22-29) mmol/L Anion Gap 10 L (12-20) BUN 12 (9-16) mg/dL Creatinine 1.02 (0.5-1.4) mg/dL Estim Creat Clear Calc 55.0 Estimated GFR 57 Random Glucose 64 (60-115) mg/dL Calcium 9.4 D (8.4-10.2) mg/dL Troponin I High Sens < 2.7 (<3.5-17.0) ng/L Independent Interpretation I performed an independent interpretation of an: CT Scan (Head: No acute intracranial pathology.) Radiology Impression Discussion of test interpretation with radiology: I have reviewed the radiologist's reading. NIH Stroke Scale Level of Consciousness: Alert Level of Consciousness Questions: Answers both questions correctly Level of Consciousness Commands: Performs both tasks correctly Best Gaze: Normal Visual: No visual loss Facial Palsy: Normal Motor Arm (Right): No drift Motor Arm (Left): No drift Motor Leg (Right): No drift Motor Leg (Left): No drift Limb Ataxia: Absent Sensory: Normal Best Language: No aphasia Dysarthia: Normal Extinction and Inattention: No abnormality Score: 0 Discharge Plan Discharge Clinical Impression: Memory changes Patient Disposition: Left Against Medical Advice Prescriptions: No Action baclofen 10 mg tablet 10 mg PO BEDTIME Qty: 30 2RF Latuda 120 mg tablet 120 mg PO BEDTIME sumatriptan succinate 25 mg tablet 0 mg PO gabapentin 800 mg tablet 800 mg PO BEDTIME lamotrigine 25 mg tablet 50 mg PO BEDTIME hydroxyzine HCl 25 mg tablet 12.5 - 25 mg PO BEDTIME PRN cholecalciferol (vitamin D3) [Vitamin D3] 10 mcg (400 unit) tablet 10 mcg PO DAILY topiramate 50 mg tablet 50 mg PO DAILY levothyroxine [Synthroid] 125 mcg tablet 125 mcg PO DAILY simethicone [Anti-Gas Ultra Strength] 180 mg capsule 0 mg PO sertraline 100 mg tablet 200 mg PO DAILY albuterol sulfate 90 mcg/actuation HFA aerosol inhaler 2 puff inhalation Q6H montelukast 10 mg tablet 10 mg PO QPM Stand Alone Forms: Against Medical Advice Print Language: Bahamian
[2024-04-08 10:24] VITALS: BP 122/83; PULSE 59; RESP 15; TEMP 36.5; O2SAT 98
[2024-04-08 13:07] VITALS: BP 129/88; PULSE 65; RESP 15; TEMP 36.4; O2SAT 99
[2024-04-08 13:29] VITALS: BP 129/88; PULSE 65; RESP 15; TEMP 36.4; O2SAT 99
== END 2024-04-08 13:30 | disposition left against medical advice (07) ==
PROVIDERS: Emergency Provider Emergency Medicine
DX: G31.84 Mild cognitive impairment of uncertain or unknown etiology (principal); R29.700 NIHSS score 0; F17.290 Nicotine dependence, other tobacco product, uncomplicated; Z53.29 Procedure and treatment not carried out because of patient's decision for other reasons
CPT/HCPCS: 36415; 70450; 70551; 80048; 84484; 85025; 93005; 99284; 99285

== ENCOUNTER → 2024-04-08 06:54 | Outpatient (BNV) | payer OTHER, SELFPAY | PROVIDERS: Emergency Provider Emergency Medicine; Visit Provider Internal Medicine Cardiovascular Disease | DX: R41.0 Disorientation, unspecified (principal) | CPT/HCPCS: 93010 ==

== ENCOUNTER → 2024-04-08 08:13 | Outpatient (BNV) | payer OTHER, SELFPAY | PROVIDERS: Emergency Provider Emergency Medicine; Visit Provider Radiology Diagnostic Radiology | DX: R41.3 Other amnesia (principal) | CPT/HCPCS: 70450; 70551 ==

== ENCOUNTER 2024-10-10 12:35 | Outpatient (AMB) | payer OTHER, SELFPAY ==
--- OUTSIDE RECORDS SUMMARY | 2024-10-05 23:59 | XMS_ITS | Continuity of Care Document ---
Author Organization [facility] Address [address] [place] [id number] [facility] [place] Name Relationship Address Phone ULICES ABARCA sibling Unknown Unavailable SYLVIADILLON Personal Relationship Unknown Unava ilable MARY WARD child Unknown Unavailable BRENNA WARD mother Unknown Unavailable OBDULIA ABARCA sibling Unknown Unavailable MARIAH LOPEZ unrelated friend Unknown Unavailable SARAHI WARD Other Unknown Unavailable Care Team Providers Care Mold Maintenance Technician Name Role Phone Halina HEADER SET UP OPERATOR, Kim Ascencio Primary Care Physician [phone] [place] [facility] [place] - [place]24 [facility] [address] [place] [address] Encounter Type: Triage Allergies, Adverse Reactions, Alerts Substance Criticality Severity Reaction Reaction Severity Status penicillin rash Active alendronate Active Trileptal 1 Active Seroquel Active Nicoderm Active Depakote Active Abilify Active LORazepam dizzy Active 1muscle [...] Toxoid Vaccine (oldterm) 04/12/04 Given 1Result Comment: [id number] Checklist completed 2Result Comment: [id number] 3Result Comment: [02/01/2018] FLU [id number] 4Result Comment: [01/06/2017] [facility] [id number] 5Result Comment: [id number] 6Result Comment: [id number] 7Result Comment: [02/01/2018] PNEUMO [id number] 8Admin Note: declines 9Admin Note: not intromuscular rcvd elsewhere Medications Albuterol (Eqv-ProAir HFA) 90 mcg/inh inhalation aerosol 2 puffs, Inhalation, Every 6 hours, PRN Wheezing/Shortness of Breath, # 1 each, 1 Refills, Maintenance, 01/20/24 9:13:00 PM EDT, [id number], 2 puffs Inhalation Every 6 hours,PRN:Wheezing/Shortness of Breath, 161.6, cm, 12/02/23 9:34:00 EDT, Height, 60, kg, 05/21/23 14:50:00 EST, Dry Weight Start Date: 01/20/24 Status: Ordered Quantity: 1.0 Unit: each Repeat number: 2 aspirin 81 mg oral delayed release tablet 81 mg, 1, tablet, By Mouth, Daily, with food, # 30 tablet, Refills 11, Tot. Refills 11, Maintenance, 06/05/24 8:42:00 AM EST, Route to Pharmacy Electronically, [facility] #[id number], 161.6, cm, 06/05/24 8:14:00 EST, Height, 60, kg, 05/21/23 14:50:00 EST, Dry Weight Start Date: 06/05/24 Status: Ordered Quantity: 30.0 Unit: tablet Repeat number: 12 Indications: Altered mental status, unspecified; Banophen 25 mg oral capsule 0 Refills, Maintenance, 03/22/24 2:32:00 PM EST, Partial fill upon patient request if the prescription is for a schedule II opioid drug. Start Date: 03/22/24 Status: Ordered Repeat number: 1 calcium (as carbonate)-vitamin D 600 mg-800 intl units oral tablet 1 tablet, By Mouth, 2 times a day, # 180 tablet, 1 Refills, Maintenance, 10/18/25 1:03:00 PM EDT, Tablet, [facility] #[id number], 1 tablet By Mouth 2 times a day, 161.6, cm, 06/05/24 8:14:00 EST, Height, 60, kg, 05/21/23 14:50:00 EST, Dry Weight Start Date: 10/18/25 Status: Ordered Quantity: 180.0 Unit: tablet Repeat number: 2 CALCIUM 600-VIT D3 800 TABLET CALCIUM 600-VIT D3 800 TABLET, 1, tablet, By Mouth, 2 times a day, # 180 tablet, 1 Refills, Maintenance, 10/25/23 9:43:00 AM EDT, 161.6, cm, 05/27/23 7:04:00 EST, Height, 60, kg, 05/21/23 14:50:00 EST, Dry Weight Start Date: 10/25/23 Status: Ordered Quantity: 180.0 Unit: tablet Repeat number: 1 clonazePAM 1 mg oral tablet 1 tablet = 1 mg, By Mouth, 2 times a day, and extra 0.5 tab as needed, 0 Refills, Maintenance, 06/15/18 1:47:56 PM EST, Tablet Start Date: 06/15/18 Status: Ordered Repeat number: 1 fluticasone 50 mcg/inh nasal spray See Instructions, INSTILL 1 SPRAY INTO BOTH NOSTRILS TWICE DAILY, # 48 mL, 1 Refills, Maintenance, 06/05/24 6:47:00 AM EST, [id number], 90, INSTILL 1 SPRAY INTO BOTH NOSTRILS TWICE DAILY, 161.6, cm, 04/19/24 10:30:00 EST, Height, 60, kg, 05/21/23 14:50:00 EST, Dry Weight Start Date: 06/05/24 Status: Ordered Quantity: 48.0 Unit: mL Repeat number: 1 gabapentin 800 mg oral tablet 0 Refills, Maintenance, 03/22/24 2:31:00 PM EST, Partial fill upon patient request if the prescription is for a schedule II opioid drug. Start Date: 03/22/24 Status: Ordered Repeat number: 1 lamotrigine 100 mg oral tablet 100 mg, 1, tablet, By Mouth, Daily at bedtime, Refills 0, Maintenance, 04/19/23 10:17:00 AM EST, Partial fill upon patient request if the prescription is for a schedule II opioid drug. Start Date: 04/19/23 Status: Ordered Repeat number: 1 Latuda 120 mg oral tablet 1 tablet = 120 mg, By Mouth, Daily, # 30 tablet, 0 Refills, Maintenance, 06/09/21 9:57:00 AM EST, Tablet, Partial fill upon patient request if the prescription is for a schedule II opioid drug. Start Date: 06/09/21 Status: Ordered Quantity: 30.0 Unit: tablet Repeat number: 1 magnesium oxide 400 mg oral tablet 1 tablet, By Mouth, Daily, # 30 tablet, 2 Refills, Maintenance, 09/21/24 9:12:00 PM EDT, [id number], 161.6, cm, 07/24/24 15:05:00 EDT, Height, 62.6, kg, 08/09/24 14:36:00 EDT, Dry Weight Start Date: 09/21/24 Status: Ordered Quantity: 30.0 Unit: tablet Repeat number: 1 MiraLax oral powder for reconstitution = 17 Gm, By Mouth, Daily, PRN Constipation, dissolve in water before taking. try not to use regularly, # 250 Gm, 0 Refills, Maintenance, 01/20/27 12:00:00 PM EDT, REC Powder, [facility] #[id number], 17 Gm By Mouth Daily,PRN:Constipation,Instr:dissolve in water before taking. try not to use regularly, 161.6, cm, 04/19/24 10:30:00 EST, Height, 60, kg, 05/21/23 14:50:00 EST, Dry Weight Start Date: 01/20/27 Status: Ordered Quantity: 250.0 Unit: g Repeat number: 1 montelukast 10 mg oral tablet 1, tablet, By Mouth, Daily in PM, # 90 tablet, Refills 1, Tot. Refills 1, Maintenance, 09/22/24 10:33:00 AM EDT, Route to Pharmacy Electronically, [facility] #[id number], 161.6, cm, 07/24/24 15:05:00 EDT,Height, 62.6, kg, 08/09/24 14:36:00 EDT, Dry Weight Start Date: 09/22/24 Status: Ordered Quantity: 90.0 Unit: tablet Repeat number: 2 prazosin 2 mg oral capsule = 4 mg, By Mouth, Daily at bedtime, And one capsule prn, 0 Refills, Maintenance, 10/07/21 8:01:00 AMEDT, Partial fill upon patient request if the prescription is for a schedule II opioid drug. Start Date: 10/07/21 Status: Ordered Repeat number: 1 risperiDONE 0.25 mg oral tablet TAKE 1 TABLET BY MOUTH EVERY DAY Start Date: 03/22/24 Status: Ordered Repeat number: 1 Senexon-S 50 mg-8.6 mg oral tablet 3 tablet, By Mouth, Daily at bedtime, # 90 tablet, 3 Refills, Maintenance, 08/02/24 10:02:00 AM EDT,[facility] #[id number], 30, 3 tablet By Mouth Daily at bedtime, 161.6, cm, 07/24/24 15:05:00 EDT, Height, 60, kg, 05/21/23 14:50:00 EST, Dry Weight Start Date: 08/02/24 Status: Ordered Quantity: 90.0 Unit: tablet Repeat number: 4 sertraline 100 mg oral tablet 2 tablet = 200 mg, By Mouth, Daily at bedtime, # 60 tablet, 0 Refills, Maintenance, 06/09/21 9:58:00AM EST, Tablet, Partial fill upon patient request if the prescription is for a schedule II opioid drug. Start Date: 06/09/21 Stop Date: 05/19/23 Status: Ordered Quantity: 60.0 Unit: tablet Repeat number: 1 sertraline 50 mg oral tablet 0 Refills, Maintenance, 03/22/24 2:31:00 PM EST, Partial fill upon patient request if the prescription is for a schedule II opioid drug. Start Date: 03/22/24 Status: Ordered Repeat number: 1 simethicone 180 mg oral capsule 1 capsule, By Mouth, 2 times a day, # 180 capsule, 1 Refills, Maintenance, 06/05/24 8:43:00 AM EST, [facility] #[id number], 161.6, cm, 06/05/24 8:14:00 EST, Height, 60, kg, 05/21/23 14:50:00 EST,Dry Weight Start Date: 06/05/24 Status: Ordered Quantity: 180.0 Unit: capsule Repeat number: 2 SUMAtriptan 25 mg oral tablet 1 tablet, By Mouth, Daily, PRN as needed for migraine headache, # 9 tablet, 5 Refills, Maintenance,10/04/24 5:09:00 PM EDT, [facility] #[id number], 161.6, cm, 10/03/24 13:31:00 EDT, Height, 62.6, kg, 08/09/24 14:36:00 EDT, Dry Weight Start Date: 10/04/24 Status: Ordered Quantity: 9.0 Unit: tablet Repeat number: 6 Synthroid 0.125 mg oral tablet See Instructions, 1 tablet by mouth daily and 0.5 tablet on Wednesday, # 90 tablet, 1 Refills,Maintenance, 05/26/24 2:08:00 PM EST, [facility] #[id number], 161.6, cm, 04/19/24 10:30:00 EST,Height, 60, kg, 05/21/23 14:50:00 EST, Dry Weight Start Date: 05/26/24 Status: Ordered Quantity: 90.0 Unit: tablet Repeat number: 2 topiramate 50 mg oral tablet 100 mg, 2 tablet, By Mouth, Daily, # 60 tablet, Refills 5 Tot. Refills 5, [facility] #[id number] Start Date: 12/14/18 Status: Ordered Quantity: 60.0 Unit: tablet Repeat number: 6 Vitamin D3 1000 intl units oral capsule 1 capsule = 25 mcg, By Mouth, Daily, # 100 capsule, 0 Refills, Maintenance, 06/09/21 9:57:00 AM EST,Capsule, Partial fill upon patient request if the prescription is for a schedule II opioid drug. Start Date: 06/09/21 Status: Ordered Quantity: 100.0 Unit: capsule Repeat number: 1 Problem List Condition Confirmation Course Effective Dates Status H ealth Status Informant Autoimmune hypothyroidism Confirmed Active Back pain Confirmed Active Bipolar disorder NOS Confirmed Active Cervical radiculopathy Confirmed Active Chronic headache Confirmed Active GERD (gastroesophageal reflux disease) Confirmed Active Generalized anxiety disorder Confirmed Active H/O: hysterectomy Confirmed Active Irritable bowel syndrome with constipation Confirmed Active Asthma, mild intermittent Confirmed Active Osteoporosis Confirmed Active Tobacco abuse 1 Confirmed Active Word finding difficulty Confirmed Active 1counsel many times, [id number] kit Social History Social History Type Response Smoking Status Smokeless tobacco us er within last 30 days; Other: switched from cigarettes to vaping in 2017.; Tobacco use times per day: 0.5-1 PPD; Number of years: 14; entered on: 03/16/19 Sex Sex Representation Female (finding) Patient Care team information Care Team Personnel Name: Halina GREGG, Kim Ascencio Position: [facility] PCO Associate Professional Member Role: PCP Address: [address] [place] [id number]- Telecom: Care Team Related Persons Name: MARIAH LOPEZ Name: MARY WARD Name: SARAHI WARD Name: ULICES ABARCA Name: OBDULIA ABARCA Insurance Providers Guarantor name: DILLON WARD Health Plan Information #: 1 Payer: [facility] Payer Identifier: FABIOLA Member Number: [id number] Group Number: [id number] Subscriber Identifier: [id number] Relationship to Subscriber: self Coverage Type: Medicare Managed Care (Includes Medicare Advantage Plans) Coverage Verification Date: FABIOLA Telecom: FABIOLA Address:
[2024-10-10 12:40] VITALS: BP 110/72; PULSE 73; O2SAT 98; BMI 22.3
--- NOTE | 2024-10-10 12:40 | A.OFFPC_ITS ---
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: No Accompanied by: Self / Same As Patient Allergies aripiprazole (From ABILIFY) Allergy (Severe, Verified 10/10/24 13:21) ANAPHYLAXIS divalproex sodium (From DEPAKOTE) Allergy (Unknown, Verified 10/10/24 13:21) UNKNOWN penicillin V Allergy (Unknown, Verified 10/10/24 13:21) Diarrhea Penicillins Adverse Reaction (Unknown, Verified 10/10/24 13:21) diarrhea From SEROQUEL Allergy (Unknown, Uncoded 10/10/24 13:21) UNKNOWN Medication List - Last Reconciled 10/10/24 by Nathan Hale, [facility]- albuterol sulfate 90 mcg/actuation 2 puffs inhalation Q6H albuterol sulfate 2.5 mg inhalation PRN aspirin 81 mg PO DAILY Ca-D3-mag ym-ccfp-zxr-lidia-bor 600 mg calcium- 20 mcg-50 mg (Calcium 600-D3 Plus (mag-zinc)) 1 tab PO BID clonazepam (Klonopin) mg PO diphenhydramine HCl (Banophen) 25 - 75 mg PO BEDTIME PRN gabapentin 400 mg PO BEDTIME hydroxyzine pamoate 50 mg PO BEDTIME PRN lamotrigine 100 mg PO BEDTIME magnesium oxide 400 mg PO DAILY prazosin 4 mg PO BEDTIME prazosin 1 mg PO BID risperidone 0.5 mg PO DAILY sennosides-docusate sodium 8.6-50 mg (Senexon-S) 3 tabs PO BEDTIME sertraline 50 mg PO DAILY sumatriptan succinate 0 mg PO topiramate 50 mg PO DAILY Tobacco use date assessed: 10/10/24 Dental Screening Dental Screen Date: 10/10/24 Did you have a dental visit in the last 12 months?: Yes Did you have a dental problem in the last 6 months where you did not have access to dental care?: No Was dental information given to patient?: Patient has dentist 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 The patient reports ongoing cervical neck pain with radiculopathy extending to the scapular regions and trapezius muscles, but not affecting the upper extremities. She is able to turn her head side to side without difficulty, and Spurling's test was negative. Scapular discomfort was noted upon testing, prompting the decision to obtain an X-ray of the shoulder and spine. Additionally, the patient reports pain in her right two toes. The dorsalis pedis pulse was positive bilaterally, and an X-ray for the right toes was ordered. The patient has a significant psychiatric history, including depression, anxiety, and bipolar disorder. She regularly sees a therapist and psychiatrist and denies any suicidal or homicidal ideation. In terms of preventative care, the patient refuses mammograms and cervical screenings. She completed a Cologuard test a year ago, which was normal, and she is due for another in 2026. Health Maintenance - Colon cancer screening with stool test (Cologuard) completed a year ago, assuming normal result, next due in 2026 - Refusal of mammograms and cervical scr eenings Social History Review of Systems - Cardiovascular: Denies chest pain, den ies dyspnea - Gastrointestinal: Denies abdominal rama n, constipation, diarrhea - Neurological: Reports cervical neck pa in with radiculopathy to scapular regions and trapezius, denies upper extremity involvement - Musculoskeletal: Reports pain in right two toes - Psychiatric: Reports history of depres haylee, anxiety, bipolar disorder, denies suicidal or homicidal ideation Physical Exam General: Cooperative, healthy appearing, comfortable, no acute distress and well developed Orientation: Patient oriented x3 Limitations: No limitations Head: Normal to inspection Ears: Hearing grossly normal bilaterally Nose: Normal external nose present Face and sinus: Normal facial exam Eyes: Appearance normal, both eyes and all related structures Neck: Normal visual inspection and Yes full ROM. Reports ongoing cervical neck pain with radiculopathy more to scapular regions and traps, not down or upper extremities, negative Spurling's, able to turn head side to side without difficu lty. More scapular discomfort noted after testing. Respiratory: Normal respiratory effort and able to speak in complete sentences. Clear to auscultation bilaterally Cardiovascular: Regular rate and rhythm. Normal S1 and S2 GI: Normal to inspection. Soft to palpation and nontender : testicles without masses/lesions and no hernias appreciated Skin: No rashes or lesions noted Neuro: Patient oriented x3 Extremities: Normal to inspection. positive dorsalis pedis bilaterally. Results Plan The patient will undergo X-rays of the shoulder and spine to further evaluate the cervical radiculopathy and associated scapular discomfort. Additionally, X- rays of the right toes will be conducted to assess the reported pain. The patient is encouraged to continue regular follow-ups with her therapist and psychiatrist to manage her depression, anxiety, and bipolar disorder. Preventative care measures were discussed, including the refusal of mammograms and cervical screenings, and the completion of a Cologuard test with a normal result. Discussion Notes I discussed with the patient the plan to obtain X-rays of her shoulder, spine, and right toes to investigate her musculoskeletal complaints further. We reviewed her psychiatric history and emphasized the importance of continuing her therapy and psychiatric follow-ups. Preventative care options were discussed, including her refusal of mammograms and cervical screenings, and the normal result of her recent Cologuard test. Patient Instructions - Follow up with X-rays for shoulder, sp ine, and right toes as discussed. - Continue regular appointments with you r therapist and psychiatrist. - Consider discussing preventative scree nings further at your next visit. [facility] Medical History (Updated 10/10/24 @ 13:10 by AIDAN Fabian) Bipolar 1 disorder Surgical History History of partial hysterectomy Social History Alcohol intake: never Patient Tobacco Use Status: Current everyday Tobacco user (Vaping) service: No Current occupational exposures/hazards: No Cognitive needs: No Hearing needs: No Vision needs: No Questionnaire PHQ-9 Over the last 2 weeks, how often have you been bothered by any of the following problems? 1. Little interest or pleasure in doing things: several days 2. Feeling down, depressed, or hopeless: several days 3. Trouble falling or staying asleep, or sleeping too much: nearly every day 4. Feeling tired or having little energy: nearly every day 5. Poor appetite or overeating: nearly every day 6. Feeling bad about yourself - or that you are a failure or have let yourself or your family down: several days 7. Trouble concentrating on things, such as reading the newspaper or watching television: more than half the days 8. Moving or speaking so slowly that other people could have noticed. Or the opposite - being so fidgety or restless that you have been moving around a lot more than usual: not at all 9. Thoughts that you would be better off or of hurting yourself in some wa y: not at all Total score: 14 Depression Screening Interpretation: Positive (denies any si or hi, has a psychiatrist and therapist) Depression Screening Follow-up: Existing condition and In treatment Depression Screening Done: Yes 01694 - PHQ-9 Billing: Yes Source: Developed by Drs. Andi Rawls, Ruby Lamar, Jeff Teixeira and colleagues, with an educational william from [employer]. Thrive Questionnaire Date Thrive assessed: 10/10/24 I am a: Patient What is your living situation today?: I have a steady place to live Within the past 12 months, did the food you bought not last and you didn't have the money to get more?: Sometimes True Within the past 12 months, did you worry whether your food would run out before you got money to buy more?: Sometimes True Do you have trouble paying for medicines?: No Do you have trouble getting transportation to medical appointments?: No Do you have trouble paying your heating and electricity bill?: Yes Do you have trouble taking care of your child, family member or friend?: No Do you have trouble with day-to-day activities such as bathing, preparing meals, shopping, managing finances, etc.?: No Are you currently unemployed and looking for a job?: No Are you interested in more education?: No Please select the resources that you would like help with: None Currently or been in a relationship where the following occur: No concerns reported THRIVE Score: 3 AUDIT C Alcohol Use Questionnaire (AUDIT-C) 1. How often do you have a drink containing alcohol?: Never 3. How often do you have six or more drinks on one occasion?: Never Total Score: 0 Score Reviewed/Action Taken: Yes SARTHAK-7 AMB Questionnaire SARTHAK-7 Date SARTHAK - 7 assessed: 10/10/24 Feeling nervous, anxious, or on edge: 3 = Nearly every day Not being able to stop or control worryin = Nearly every day Worrying too much about different things: 3 = Nearly every day Trouble relaxin = Nearly every day Being so restless that it is hard to sit still: 2 = More than half the days Becoming easily annoyed or irritable: 0 = Not at all Feeling afraid as if something awful might happen: 3 = Nearly every day Total SARTHAK-7 score (0-4 normal; 5-9 mild; 10-14 moderate; 15-21 severe): 17 Source: Developed by Drs. Andi Rawls, Ruby Lamar, Jeff Teixeira and colleagues, with an educational william from [employer]. SARTHAK-7 Assessment Billing SARTHAK-7 Assessment Tool: SARTHAK-7 Assessment 76094 (denies any si or HI, has a therapist and psychiatrist) Physical exam (Primary Care) Vital Signs: Last Vital Signs Pulse 73 10/10/24 12:40 BP 110/72 10/10/24 12:40 Pulse Ox 98 10/10/24 12:40 BMI result Body Mass Index 22.3 Tobacco/Smoking Status: Tobacco use Status Tobacco use date assessed 10/10/24 10/10/24 12:42 Patient Tobacco Use Status Current everyday Tobacco ( 10/10/24 12:54 Vaping) PHQ-9: PHQ-9 Score PHQ-9: Total score 14 10/10/24 12:42 Depression Screening Interpretation: Positive (denies any si or hi, has a psychiatrist and therapist) Depression Screening Follow-up: Existing condition and In treatment Thrive Assessment: Date of Thrive Assessment Date Thrive assessed 10/10/24 10/10/24 12:42 Currently or been in a relationship where the following occur: No concerns reported Coding Level of Care Code New Pt Prev Care 40-64y(35399) Diagnoses Lower back pain M54.50 Encounter for routine adult physical exam with abnormal findings Z00.01 Upper back pain, chronic M54.9; G89.29 Vitamin D deficiency E55.9 Smoker F17.200 Additional Codes PHQ-9 - 70016 - PHQ-9 Billing: Yes ([id number]) SARTHAK-7 Assessment Billing - SARTHAK-7 Assessment Tool: SARTHAK-7 Assessment 42156 ([id number]) Assessment & Plan Assessment & Plan (1) Lower back pain: Code(s): M54.50 - Low back pain, unspecified Category: Medical (2) Encounter for routine adult physical exam with abnormal findings: Code(s): Z00.01 - Encounter for general adult medical examination with abnormal findings Category: Medical (3) Upper back pain, chronic: Code(s): M54.9 - Dorsalgia, unspecified; G89.29 - Other chronic pain Category: Medical (4) Vitamin D deficiency: Code(s): E55.9 - Vitamin D deficiency, unspecified Category: Medical (5) Smoker: Code(s): F17.200 - Nicotine dependence, unspecified, uncomplicated Category: Social Hx Plan . Orders: Orders XR cervical spine 2V Today G89.29 - Other chronic pain, M54.9 - Dorsalgia, unspecified Complete Blood Count Auto Diff Today Z00.01 - Encounter for general adult medical examination with abnormal findings Comprehensive [place]. Panel Fast Today Z00.01 - Encounter for general adult medical examination with abnormal findings TSH reflex Free T4 Today Z00.01 - Encounter for general adult medical examination with abnormal findings UA CC w/rflx Micro + Cult Today Z00.01 - Encounter for general adult medical examination with abnormal findings Lipid Panel Today Z00.01 - Encounter for general adult medical examination with abnormal findings Vitamin D 25-OH Total Today E55.9 - Vitamin D deficiency, unspecified XR toe RT min 2V Today G89.29 - Other chronic pain, M79.676 - Pain in unspecified toe(s) Referrals Lung Cancer Screening Referral F17.200 - Nicotine dependence, unspecified, uncomplicated
--- OUTSIDE RECORDS SUMMARY | 2024-10-10 13:28 | XMS_ITS | Data Portability ---
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 cough and cold/ and robitussin. She feels sob , fever/ chills// weakness. She does have a productive cough, clear sputum. She does have asthma , using inhalers, talking in full sentences. She does not hear exp wheeze but the congestion. I provided information on the mobile health provider response time and advised the patient and/or caregiver to monitor reported signs and symptoms. I discussed the warning signs of when to seek emergency care. Fastener Technologist Organization Information for Nathan Larsen [employer] Legal Name: [facility] Address: [address] [place] [address], [place] [address], Outpatient Physical Therapist: Jayden Mccann MD [place] No.: [id number] Fastener Technologist POC Test Results from Nathan Larsen Rapid COVID antigen (20:53:34) COVID: - Rapid influenza antigen (20:53:35) Flu: - ..................................... ..................................... ..................................... .............................. Fastener Technologist Note From Nathan Larsen: Patient alert and oriented meets me at the elevator and walks back to her apartment. Patient complains of nasal congestion, running nose, frequent productive, cough times four days. Patient reports she has albuterol nebulizer, and MDI, has not felt the need to use same in the last four days. Patient reports sleeping normally, eating and drinking, denies weakness and dizziness. Patient, pink warm, dry, secondary exam unremarkable, lung sounds clear, negative increased work of breathing, positive full sentences, frequent productive cough noted, abdomen, soft, non tender, extremities remarkable. Patient request additional albuterol nebulizer solution. Patient negative for Covid and flu via rapid POC. No increased work of breathing after walk from elevator. [facility] recommends supportive care, will prescribe albuterol to patient s local pharmacy. Patient reports she will use nebulizer before bed today and four times per day while ill. Red flags patient education discussed. Patient demonstrates understanding of care and plan. [facility] Lab Orders: rapid SARS CoV 2 Ag, QL IA, respiratory specimen: Performed rapid flu (A+B): Performed ..................................... ..................................... ..................................... .............................. [facility] Consulted: Robert Busby ..................................... ..................................... ..................................... .............................. Disposition: Fulfilled Robert Busby MD [address] [place] [address],[address] [place] [address], [place], [phone] , [employer] 07/19/2024 22:48:36 025 text/ht ml CRC Nurse Triage Notes (Kacey Cm - RN): Reason For Request: Patient has back pain. Chief Complaints: Back Pain PMH: Chronic Bronchitis, Chronic Back Pain, Severe Persistent Mental Illness (SPMI), Migraine, Asthma, Bipolar Disorder PMH Reviewed at 09/05/2024:17 Allergies Reviewed at 09/05/2024:17 Pain Assessment: Level 8 out of 10 Comments: 54 y.o female complains of Back Pain She takes cortisone for her back pain. Her next one is october 03. She is unable to do PT as she is in too much pain. Her pain is 8-10. Her pain is on her shoulder blades and lower back . She has taken her muscle relaxers with no change She takes ASA / no CKD I provided information on the mobile health provider response time and advised the patient and/or caregiver to monitor reported signs and symptoms. I discussed the warning signs of when to seek emergency care.SEGMD: I did not participate in the care of this patient. The [place] encounter was closed before the medic filled the visit in the [employer] platform, so the medic summary did not crossover into the [place] encounter. Thus I am entering it here: SummaryPatient alert and oriented complaints of acute on chronic lower back pain times two weeks. Patient reports appointment with pain clinic October 03, has tried heat cold Tylenol with a little relief. Patient reports pain radiates to upper back and arms, denies chest pain, difficulty breathing, or any other pain or complaints. Patient denies numbness or tingling, steady, even GAIT.Patient pink warm dry secondary exam unremarkable. Good CSM s in all.[facility] orders Toradol 30 mg IM now, follow up with patient s PCP. Red flag patient education discussed. Medication administered as ordered using five rights.Services ProvidedMedication (IM), Patient EducationReferring Provider Labs---[facility] Lab Orders---[facility] Medication Ordersketorolac 30 mg/mL injection solution - Inject 1 mL by intravenous route.: AdministeredDispositionFulfilledWas patient sent to ED?[facility] consulted on the case?Yes - Manolo Calderon MD [address] [place] [address],[address], [place], [phone] , [facility] - [employer] 09/11/2024 17:32:22 OBGyn Episode No OBEpisode recorded.
== END 2024-10-10 13:15 | disposition home or self-care (01) ==
LOC: HO.HMCC 12:36
PROVIDERS: Visit Provider Nurse Practitioner Family
DX: M54.50 Low back pain, unspecified (principal); Z00.01 Encounter for general adult medical examination with abnormal findings; M54.9 Dorsalgia, unspecified; G89.29 Other chronic pain; E55.9 Vitamin D deficiency, unspecified; F17.200 Nicotine dependence, unspecified, uncomplicated

== ENCOUNTER → 2024-10-10 12:35 | Outpatient (BNVA) | payer OTHER, SELFPAY | PROVIDERS: Visit Provider Nurse Practitioner Family | DX: Z00.01 Encounter for general adult medical examination with abnormal findings (principal); M54.12 Radiculopathy, cervical region; M79.674 Pain in right toe(s); F31.9 Bipolar disorder, unspecified; F41.9 Anxiety disorder, unspecified; M54.50 Low back pain, unspecified; E55.9 Vitamin D deficiency, unspecified; G89.29 Other chronic pain; F17.290 Nicotine dependence, other tobacco product, uncomplicated | CPT/HCPCS: 96127; 99386 ==

== ENCOUNTER 2024-10-16 06:38 | Outpatient (REF) | payer OTHER, SELFPAY ==
--- NOTE | ~2024-10-16 | XR_ITS ---
CLINICAL HISTORY: M79.676 - Pain in unspecified toe(s) 3 views right foot, attention 5th toe (AP right foot and 2 oblique views of the 2nd 3rd 4th and 5th toes). Comparison: None Findings: No fractures or dislocations No joint effusion No significant arthritic change No radiopaque foreign body Impression: Soft tissue swelling with no acute skeletal abnormality This document has been electronically signed by: Aristides Nowak MD on 10/16/2024 22:08:22
--- OUTSIDE RECORDS SUMMARY | 2024-10-16 06:41 | XMS_ITS | Data Portability ---
Author Organization [facility], [facility] Address [address] [place] [address] Care Team Providers Care Diversity Manager Name Role Phone HIM CCA OTHER CURTISKEVIN Primary Care Provider Assessment Encounter Date Assessment Date Assessment LastModified by Organization Details LastModified Time 03/23/2024 03/23/2024 As noted, we were called to see this patient regarding concerns of shob. Evaluation in the field was performed by my hitch technician colleague, as noted above, I provided [...] assessment and plan as documented by the hitch technician. I provided real-time medical direction for this [...] to ambulate. Exam otherwise unremarkable per the hitch technician. Impression: Back pain, no evidence for acute [...] Assessment and Plan as documented by the Transcriber. We discussed the diagnostic uncertainty of home [...] Ag, QL IA, respiratory specimen [address], [id number] 5 21:54:23 rapid flu (A+B) [address], [address] 5 21:54:23 BMP, serum or plasma [address], [address] 5 17:18:41 hemoglobin + hematocrit, blood [address], [address] 17:18:57 Referral None recorded. Procedures None recorded. Surgeries None recorded. Imaging None recorded. Medication Orders ketorolac 30 mg/mL injection solution 2024 025 mayi maldonado [id number], [address] [place], [address], 5 11:35:23 albuterol sulfate 2.5 mg/3 mL (0.083 %) solution for nebulizatio n 2024 025 [id number], [address] [place], [address], 5 21:07:57 ketorolac 30 mg/mL injection solution [address] [id number], [address] [place], [place], [id number], 5 11:00:34 diphenhydra mine 50 mg/mL injection solution [address] [facility], [facility] [place], [place], [id number], 5 11:00:34 sodium chloride 0.9 % intravenous solution [address] [facility][id number], [address] [place] [address], [id number], 5 11:00:34 ondansetron HCl (PF) 4 mg/2 mL injection solution [address] [facility]93805, [address] [place], [place], [id number], 5 11:01:45 ketorolac 30 mg/mL injection solution 2024 025 [facility], [address] [place], [place], [id number], 5 19:35:44 prednisone 20 mg tablet 2023 024 [facility]74850, [address] [place], [place], [id number], 4 17:50:55 albuterol sulfate 2.5 mg/3 mL (0.083 %) solution for nebulizatio n 2023 024 [facility]90587, [address] [place], [place], [id number], 4 17:51:04 albuterol sulfate 2.5 mg/3 mL (0.083 %) solution for nebulizatio n 2023 024 [facility]72165, [address] [place], [place], [id number], 4 17:50:55 prednisone 20 mg tablet 2023 024 [facility]15162, [address] [place], [place], [id number], 4 17:50:55 Patient TargetsNo targets recorded. Patient InstructionsNo instructions recorded. Reason for Referral None Reported. Results Created Date Observation Date Name Description Value Unit Range Abnormal Flag Note LastModifiedBy Organization Detail LastModifiedTime 07/20/19 25 07/19/2024 rapid flu (A+B) Flu negati ve Not Available [facility] ed [address] [place] [address], [phone] 07/19/2024 21:06:19 07/20/19 25 07/19/2024 rapid SARS CoV 2 Ag, QL IA, respi rator y speci men rapid SARS CoV 2 Ag, QL IA, respiratory specimen negati ve Not Available [facility] ed [address] [place] [address], [phone] 07/19/2024 21:06:18 Result Notes None recorded. Medical Equipment None Reported. Allergies Allergen ID Allergen Name Allergen Category Reaction Reaction Severity Criticality Documentation Date Start Date Code Code System Note Provider Name and Address Organization Details Recorded Time 4874 Product containin g penicilli n (product) medicatio n Not available Not available Not available 02/08/2024 64287 8001 SNOMED Not Available [employer] - production [...] Respiratory rate Body weight Heart rate Systolic And Diastolic Provider Name and Address Organization Details Last Updated DateTime 5 96 % 96 % 14 /min 42438 g 80 /min 122/87 mm[Hg] Not Available [employer] 5 19:30:39 Date Recorded Body weight Oxygen saturation Oxygen saturation in Arterial blood by Pulse oximetry Heart rate Body temperature Body height Respiratory rate Systolic And Diastolic Provider Name and Address Organization Details Last Updated DateTime 5 28301.8 8 g 96 % 96 % 68 /min 97.5 [degF] 162.56 cm 14 /min 146/87 mm[Hg] Not Available [employer] 5 10:43:57 Date Recorded Body weight Body temperature Respiratory rate Body height Heart rate Oxygen saturation Oxygen saturation in Arterial blood by Pulse oximetry Systolic And Diastolic Provider Name and Address Organization Details Last Updated DateTime 5 59099.8 g 98 [degF] 14 /min 162.56 cm 72 /min 98 % 98 % 126/86 mm[Hg] Not Available [employer] 5 21:03:19 Date Recorded Respiratory rate Heart rate Body temperature Body weight Body height Oxygen saturation Oxygen saturation in Arterial blood by Pulse oximetry Systolic And Diastolic Provider Name and Address Organization Details Last Updated DateTime 5 14 /min 72 /min 98 [degF] 61970.8 g 167.64 cm 98 % 98 % 110/78 mm[Hg] Not Available [employer] 5 11:32:44 Date Recorded Oxygen saturation Oxygen saturation in Arterial blood by Pulse oximetry Heart rate Body height Respiratory rate Body weight Body temperature Systolic And Diastolic Provider Name and Address Organization Details Last Updated DateTime 4 96 % 96 % 82 /min 162.56 cm 16 /min 50954.9 2 g 98.5 [degF] 104/76 mm[Hg] Not Available [employer] 4 17:45:57 Social History None recorded. Functional Status None recorded. Mental Status None recorded. Family History Nothing Reported. Medical History No medical history recorded. Gynecological HistoryNo gynecological history recorded. Obstetrics History GPAL:G 0 P 0 0 0 0 Past Encounters Encounter ID Performer Location Encounter Start Date Encounter Closed Date Diagnosis/Indication Diagnosis SNOMED-CT Code Diagnosis ICD10 Code Diagnosis Note [id number] Niya Menendez MD [facility] [address] [place] [id number] 09/29/2022 13:28:52 10/01/2022 15:56:15 Injury of right leg [id number] 6123101 S89.91XA 52 year old female being evaluated [...] further interventi on indicated at this time. [id number] OMAIRA CHIU MD [facility] [address] [place] [address] 12/10/2023 15:21:40 12/24/2023 22:47:11 Nausea 036439113 R11.0 [id number] Lory Awad MD [facility] [address] [place] [phone] 03/23/2024 17:45:54 03/23/2024 22:58:00 Acute exacerbation of chronic obstructive pulmonary disease 333966739 J44.1 Viral uppe r respiratory tract infection 855473536 J06.9 [id number] Anita Galvan MD [facility] [address] [place] [phone] 04/14/2024 19:30:02 04/14/2024 22:01:55 Acute low back pain 371034585 M54.50 [id number] Grady Downs MD [facility] [address] [place] [phone] 06/11/2024 10:40:38 06/12/2024 09:47:07 Migraine 31368381 G43.909 Patient with migraine unresponsi ve to Sumatripta n. No contraindi cations to Toradol. Will give IV benadryl and toradol. Given interactio ns, will not give Reglan at this time. BMP and H/H within normal limits. Discussed red flag signs to present for higher level of care. [id number] Robert Busby MD [facility] [address] [place] [phone] 07/19/2024 21:03:16 07/19/2024 23:35:29 Viral upper respiratory tract infection 991775136 J06.9 [id number] MANOLO CALDERON MD [facility] [address] [place] [phone] 09/05/2024 11:32:42 09/05/2024 14:18:29 Chronic low back pain 171594352 M54.50 G89.29 Health Concerns Section Related Observation LastModified by Organization Detai ls LastModified Time None Recorded Concern Status LastModified by Organization Details LastModified Time None Recorded Advance Directives Directive None Recorded Payers Insurance Date Sequence Insurance Name Policy Number Policy Adkins Covered Member ID Adkins Member ID Guarantor Name 09/05/2024 1 [facility] - DOS ON OR AFTER 2022 - DUAL ELIGIBLE - CUSTODIAL OPTIONS AND ONE CARE (MEDICARE REPLACEMENT/ADV ANTAGE - HMO) Susy Benavides [id number] Susy Benavides Notes Date Note Type Note [...] talking. Unable to take a deep breath. [facility] HPI: Transcriber Organization Information for Brian Saenz [employer] Legal Name: [employer]. Address: [address] [place] [address], Carrot Harvester: Clemente AMAYA No.: [id number] Transcriber POC Test Results from Brian Saenz [employer] Rapid influenza antigen (17:53:41) Flu: - Rapid COVID antigen (17:53:42) COVID: - Rapid strep test (17:53:45) Strep: - ..................................... ..................................... ..................................... .............................. Transcriber Note From Brian Saenz: [facility]. Pt presents complaining [...] and rhonchi on lung exam. Consulted with [facility]. Awad who ordered duoneb treatment and 40 mg of prednisone both given on scene. Pt reports improvement in breathing after treatment. Rx sent to patients pharmacy. Reviewed red flags for ED. Pt education provided. ..................................... ..................................... ..................................... .............................. [facility] Consulted: Lory Awad ..................................... ..................................... ..................................... .............................. Disposition: Fulfilled Lory Awad MD [address] [place] [address],[address] [place] [address], [place], [phone] , [employer] 03/23/2024 19:08:41 025 text/ht CRC Nurse Triage Notes (Kacey Cm - RN): Reason For Request: Pt reporting suspected back sprain, 8 out of 10 pain, going on day 2 of pain.back pain Chief Complaints: Back pain PMH: Chronic Bronchitis, Chronic Back Pain, Severe Persistent Mental Illness (SPMI) Pain Assessment: Level 8 out of 10 Comments: Special Effects Artist verified the name//address and phone number. Pt [...] treatment if needed ..................................... ..................................... ..................................... .............................. Transcriber Note From Jacque Senior: Dispatched for the [...] strong radial pulse, - FAST-ED. Consulted with [facility] Galvan. Dr. Galvan recommended 15 mgs [...] All times approx. ..................................... ..................................... ..................................... .............................. [facility] Consulted: Anita Galvan ..................................... ..................................... ..................................... .............................. Disposition: Fulfilled Anita Galvan MD [address] [place] [address],[address] [place] [address], [place], [phone] [facility] [employer] 04/14/2024 21:33:16 025 text/ht CRC Nurse Triage Notes (Harman Osorio - [...] PMH Reviewed at 06/11/2024:32 Allergies Reviewed at 06/11/2024 - 08:32 Comments: Special Effects Artist verified the Pt.'s name//address and phone number. Education provided on the response time and the Pt. was advised to monitor reported s/s and seek emergency treatment if needed. Pt reports feeling unwell with a migraine - Same started yesterday - Reports taking Sumatriptan with no relief - Light and sound sensitivity - Denies fever - Denies nausea and vomiting - Wellness check requested Transcriber Organization Information for Prosper Villegas [employer] Legal Name: [facility] [employer] Address: [address] [place] [address], [place] [address], Carrot Harvester: Jayden Mccann MD CLIA No.: [id number] Transcriber POC Test Results from Prosper Villegas [facility] (10:56:01) pH: 7.37 pH units pCO2: 53.3 mmHg pO2: 20.5 mmHg Na: 143 mmol/L K: 3.9 mmol/L iCa: 1.22 mmol/L Cl: 105 mmol/L TCO2: 29.9 mEq/L Hct: 38 % Hb: 12.8 g/dL Glu: 93 mg/dL Lac: 0.71 mmol/L Cr: 0.98 mg/dL BUN: 9 mg/dL A mmol/L HCO3: 30.6 mmol/L ..................................... ..................................... ..................................... .............................. Transcriber Note From Prosper Villegas: This 53-year-old female [...] questions and is agreeable to this plan. [facility] Lab Orders: BMP, serum or plasma: Performed hemoglobin + hematocrit, blood: Performed [facility] Medication Orders: ketorolac 30 mg/mL injection solution: Administered diphenhydramine 50 mg/mL injection solution: Administered sodium chloride 0.9 % intravenous solution: Administered ondansetron HCl (PF) 4 mg/2 mL injection solution: Administered ..................................... ..................................... ..................................... .............................. [facility] Consulted: Benjy Downs ..................................... ..................................... ..................................... .............................. Disposition: Fulfilled Grady Downs MD [address] [place] [address],[address] [place] [address], [place], [address] , [facility] 06/11/2024 14:56:07 025 text/[facility] CRC Nurse Triage Notes (Kacey Cm - [...] Migraine, Asthma PMH Reviewed at 07/19/2024 - 15: Allergies Reviewed at 07/19/2024 - 15:07 Comments: 54 y.o female complains of Common [...] signs of when to seek emergency care. Transcriber Organization Information for Nathan Larsen [employer] Legal Name: [facility] Transportation Address: [address] [place] [address], [place] [address], Carrot Harvester: Jayden PHANIA No.: [id number] Transcriber POC Test Results from Nathan Larsen Rapid COVID antigen (20:53:34) COVID: - Rapid influenza antigen (20:53:35) Flu: - ..................................... ..................................... ..................................... .............................. Transcriber Note From Nathan Larsen: Patient alert and [...] work of breathing after walk from elevator. [facility] recommends supportive care, will prescribe albuterol to patient s local pharmacy. Patient reports she will use nebulizer before bed today and four times per day while ill. Red flags patient education discussed. Patient demonstrates understanding of care and plan. [facility] Lab Orders: rapid SARS CoV 2 Ag, QL IA, respiratory specimen: Performed rapid flu (A+B): Performed ..................................... ..................................... ..................................... .............................. [facility] Consulted: Robert Busby ..................................... ..................................... ..................................... .............................. Disposition: Fulfilled Robert Busby MD [address] [place] [address],[address] [place] [address], [place], [address] [facility] [employer] 07/19/2024 22:48:36 025 text/ht CRC Nurse Triage Notes (Kacey Cm - RN): Reason For Request: Patient has back pain. Chief Complaints: Back Pain PMH: Chronic Bronchitis, Chronic Back Pain, Severe Persistent Mental Illness (SPMI), Migraine, Asthma, Bipolar Disorder PMH Reviewed at 09/05/2024: Allergies Reviewed at 09/05/2024:17 Pain Assessment: Level [...] in the care of this patient. The [place] encounter was closed before the medic filled the visit in the [employer] platform, so the medic summary did not crossover into the [place] encounter. Thus I am entering it here: [...] secondary exam unremarkable. Good CSM s in all.C orders Toradol 30 mg IM now, follow up with patient s PCP. Red flag patient education discussed. Medication administered as ordered using five rights.Services ProvidedMedication (IM), Patient EducationReferring Provider Labs---C Lab Orders---[facility] Medication Ordersketorolac 30 mg/mL injection solution - Inject 1 mL by intravenous route.: AdministeredDispositionFulfilledWas patient sent to ED?[facility] consulted on the case?Yes - Manolo Calderon MD [address] [place] [address],[address] [place] [address], [place], [phone] , [facility] - [employer] 09/11/2024 17:32:22 OBGyn Episode No OBEpisode recorded.
[2024-10-16 10:49] LABS: MANUAL DIFF FLAG NO
[2024-10-16 10:56] LABS: Hematocrit 40.2 % (37.0-47.0); Hemoglobin 13.3 g/dl (12.0-16.0); Imm Gran Abs Auto 0.01 X10*3/uL (0.00-0.03); Imm Gran Pct Auto 0.2 % (0.0-0.4); Lymphocytes Absolute Auto 1.7 X10*3/uL (1.2-4.9); Mean Corpuscular HGB Conc 33.1 g/dl (31.0-35.0); Mean Corpuscular Hemoglobin 31.2 pg (27.0-33.0); Mean Corpuscular Volume 94.4 fL (80.0-98.0); NRBC Abs Auto 0.000 X10*3/uL (0.0-0.012); NRBC Pct Auto 0.0 /100WBC (0.0-0.2); Platelet Count 196 X10*3/uL (160-400); Red Blood Count 4.26 X10*6/uL (4.20-5.50); White Blood Count 4.1 X10*3/uL (4.8-10.8)
[2024-10-16 11:36] LABS: Appearance Urine Clear; Glucose Urine UA Negative (Negative); PH 6.5 (5.0-9.0); Specific Gravity - Urine 1.010 (1.005-1.025); UMIC TRIGGER UACC YES
[2024-10-16 12:36] LABS: Anion Gap 9 (12-20)
[2024-10-16 12:41] LABS: Alanine Aminotransferase 11 U/L (0-31); Albumin Level 4.2 g/dL (3.5-5.0); Alkaline Phosphatase 29 U/L (39-117); Aspartate Amino Transferase 17 U/L (5-31); Blood Urea Nitrogen 9 mg/dL (9-16); Calcium 9.4 mg/dL (8.4-10.2); Carbon Dioxide 28 mmol/L (22-29); Chloride 110 mmol/L (96-108); Cholesterol 207 mg/dL (<200); Estimated Glomerular Filt Rate > 60; HDL Cholesterol 69 mg/dL (>40); Potassium 4.1 mmol/L (3.3-5.1); Sodium 143 mmol/L (135-145); Total Protein 5.9 g/dL (6.5-8.0); Triglycerides 84 mg/dL (<150)
== END 2024-10-16 06:39 | disposition home or self-care (01) ==
LOC: HO.HMGCLDS 06:38
PROVIDERS: PCP Nurse Practitioner Family; Visit Provider Nurse Practitioner Family
DX: Z00.01 Encounter for general adult medical examination with abnormal findings (principal); E55.9 Vitamin D deficiency, unspecified; M79.89 Other specified soft tissue disorders; M79.674 Pain in right toe(s)
CPT/HCPCS: 36415; 73660; 80053; 80061; 81001; 82306; 84443; 85025

== ENCOUNTER → 2024-10-16 09:07 | Outpatient (BNV) | payer OTHER, SELFPAY | PROVIDERS: PCP Nurse Practitioner Family; Visit Provider Radiology Diagnostic Radiology | DX: M79.674 Pain in right toe(s) (principal); R22.41 Localized swelling, mass and lump, right lower limb | CPT/HCPCS: 73660 ==

== ENCOUNTER 2024-10-20 08:40 | Outpatient (REF) | payer OTHER, SELFPAY ==
--- NOTE | ~2024-10-20 | XR_ITS ---
EXAMINATION: XR THORACIC SPINE CLINICAL INFORMATION: M54.6 - Pain in thoracic spine COMPARISON: None available. TECHNIQUE: AP and lateral views FINDINGS: S-shaped curvature of the thoracolumbar spine. No acute cortical disruption or malalignment. No lytic or blastic lesions. XR/XR thoracic spine 2V IMPRESSION: Scoliosis, thoracolumbar spine. Electronically signed by: Sahil Fabian MD 10/20/2024 09:20 AM EDT
--- NOTE | ~2024-10-20 | XR_ITS ---
EXAMINATION: XR CERVICAL SPINE CLINICAL INFORMATION: M54.9 - Dorsalgia, unspecified COMPARISON: Correlated to CT dated January 04, 2019. TECHNIQUE: AP and lateral views FINDINGS: Craniocervical junction is intact. No acute cortical disruption or malalignment. No lytic or blastic lesions. Upper airway is patent. Edentulous. Radiopaque material in the oral cavity. XR/XR cervical spine 2V IMPRESSION: No acute fracture or listhesis. Electronically signed by: Sahil Fabian MD 10/20/2024 09:21 AM EDT
--- OUTSIDE RECORDS SUMMARY | 2024-10-20 08:46 | XMS_ITS | Data Portability ---
Author Organization [employer], [facility] Address [address] [place] [address] Care Team Providers Care Specialist Physician Name Role Phone HIM CCA OTHER CURTISKEVIN Primary Care Provider [phone] Assessment Encounter Date Assessment Date Assessment LastModified by Organization Details LastModified Time 03/23/2024 03/23/2024 As noted, we were called to see this patient regarding concerns of shob. Evaluation in the field was performed by my client support representative colleague, as noted above, I provided real-time [...] assessment and plan as documented by the client support representative. I provided real-time medical direction for this [...] to ambulate. Exam otherwise unremarkable per the client support representative. Impression: Back pain, no evidence for acute [...] Assessment and Plan as documented by the Intelligence Officer. We discussed the diagnostic uncertainty of home [...] Ag, QL IA, respiratory specimen [address], [id number] 5 21:54:23 rapid flu (A+B) [address], [id number] 5 21:54:23 BMP, serum or plasma [address], [id number] 5 17:18:41 hemoglobin + hematocrit, blood [address], [id number] 17:18:57 Referral None recorded. Procedures None recorded. Surgeries None recorded. Imaging None recorded. Medication Orders ketorolac 30 mg/mL injection solution 2024 025 mayi maldonado [id number], [address] [place], [address], 5 11:35:23 albuterol sulfate 2.5 mg/3 mL (0.083 %) solution for nebulizatio n 2024 025 [id number], [address] [place], [address], 5 21:07:57 ketorolac 30 mg/mL injection solution [address] [id number], [address] [place], [place], [id number], 5 11:00:34 diphenhydra mine 50 mg/mL injection solution [address] [facility], [facility], [place], [id number], 5 11:00:34 sodium chloride 0.9 % intravenous solution [address] [facility], [address] [place] [address], [id number], 5 11:00:34 ondansetron HCl (PF) 4 mg/2 mL injection solution [address] [facility]27239, [address], [place], [id number], 5 11:01:45 ketorolac 30 mg/mL injection solution 2024 [facility], [address], [place], [id number], 5 19:35:44 prednisone 20 [address] tablet [address] [facility]93427, [address], [place], [id number], 4 17:50:55 albuterol sulfate 2.5 mg/3 mL (0.083 %) solution for nebulizatio n 2023 024 [facility]46274, [address], [place], [id number], 4 17:51:04 albuterol sulfate 2.5 mg/3 mL (0.083 %) solution for nebulizatio n [address] [facility]18586, [address], [place], [id number], 4 17:50:55 prednisone 20 mg tablet [address] [facility] #32936, [address], [place], [id number], 4 17:50:55 Patient TargetsNo targets recorded. Patient InstructionsNo instructions recorded. Reason for Referral None Reported. Results Created Date Observation Date Name Description Value Unit Range Abnormal Flag Note LastModifiedBy Organization Detail LastModifiedTime 07/20/19 25 07/19/2024 rapid flu (A+B) Flu negati ve Not Available [facility] ed [address] [place] [address], [phone] 07/19/2024 21:06:19 07/20/19 25 07/19/2024 rapid SARS CoV 2 Ag, QL IA, respi rator y speci men rapid SARS CoV 2 Ag, QL IA, respiratory specimen negati ve Not Available [facility] ed [address] [place] [address], [phone] 07/19/2024 21:06:18 Result Notes None recorded. Medical Equipment None Reported. Allergies Allergen ID Allergen Name Allergen Category Reaction Reaction Severity Criticality Documentation Date Start Date Code Code System Note Provider Name and Address Organization Details Recorded Time 8485 Product containin g penicilli n (product) medicatio n Not available Not available Not available 02/08/2024 28474 8001 SNOMED Not Available [employer] - production [...] mg/3 mL (0.083 %) solution for nebulization INHALE 3 ML VIA NEBULIZER UP TO 3 TIMES A DAY NEEDED. active Not Available Not Available N ot Available simethicone 180 mg capsule TAKE 1 [...] 5 96 % 96 % 14 /min 40180 g 80 /min 122/87 mm[Hg] Not Available [facility] 5 19:30:39 Date Recorded Body weight Oxygen saturation Oxygen saturation in Arterial blood by Pulse oximetry Heart rate Body temperature Body height Respiratory rate Systolic And Diastolic Provider Name and Address Organization Details Last Updated DateTime 5 09440.8 8 g 96 % 96 % 68 /min 97.5 [degF] 162.56 cm 14 /min 146/87 mm[Hg] Not Available [facility] [facility] 5 10:43:57 Date Recorded Body weight Body temperature Respiratory rate Body height Heart rate Oxygen saturation Oxygen saturation in Arterial blood by Pulse oximetry Systolic And Diastolic Provider Name and Address Organization Details Last Updated DateTime 5 15186.8 g 98 [degF] 14 /min 162.56 cm 72 /min 98 % 98 % 126/86 mm[Hg] Not Available [employer] 5 21:03:19 Date Recorded Respiratory rate Heart rate Body temperature Body weight Body height Oxygen saturation Oxygen saturation in Arterial blood by Pulse oximetry Systolic And Diastolic Provider Name and Address Organization Details Last Updated DateTime 5 14 /min 72 /min 98 [degF] 16120.8 g 167.64 cm 98 % 98 % 110/78 mm[Hg] Not Available [employer] 5 11:32:44 Date Recorded Oxygen saturation Oxygen saturation in Arterial blood by Pulse oximetry Heart rate Body height Respiratory rate Body weight Body temperature Systolic And Diastolic Provider Name and Address Organization Details Last Updated DateTime 4 96 % 96 % 82 /min 162.56 cm 16 /min 18022.9 2 g 98.5 [degF] 104/76 mm[Hg] Not Available [employer] 4 17:45:57 Social History None recorded. Functional Status None recorded. Mental Status None recorded. Family History Nothing Reported. Medical History No medical history recorded. Gynecological HistoryNo gynecological history recorded. Obstetrics History GPAL:G 0 P 0 0 0 0 Past Encounters Encounter ID Performer Location Encounter Start Date Encounter Closed Date Diagnosis/Indication Diagnosis SNOMED-CT Code Diagnosis ICD10 Code Diagnosis Note [id number] Niya Menendez MD [facility] [address] [place] [id number] 09/29/2022 13:28:52 10/01/2022 15:56:15 Injury of right leg 8157201633 9217775 S89.91XA 52 year old female being evaluated [...] further interventi on indicated at this time. [id number] OMAIRA CHIU MD [facility] - [facility] [address] [place] [id number] 12/10/2023 15:21:40 12/24/2023 22:47:11 Nausea 079987394 R11.0 [id number] Lory Awad MD [facility] - [facility] [address] [place] [id number] 03/23/2024 17:45:54 03/23/2024 22:58:00 Acute exacerbation of chronic obstructive pulmonary disease 770722971 J44.1 Viral uppe r respiratory tract infection 127394945 J06.9 [id number] Anita Galvan MD [facility] [address] [place] [id number] 04/14/2024 19:30:02 04/14/2024 22:01:55 Acute low back pain 275795917 M54.50 [id number] Grady Downs MD Main - [facility] [address] [place] [id number] 06/11/2024 10:40:38 06/12/2024 09:47:07 Migraine 42774697 G43.909 Patient with migraine unresponsi ve to Sumatripta n. No contraindi cations to Toradol. Will give IV benadryl and toradol. Given interactio ns, will not give Reglan at this time. BMP and H/H within normal limits. Discussed red flag signs to present for higher level of care. [id number] Robert Busby MD [facility] [address] [place] [id number] 07/19/2024 21:03:16 07/19/2024 23:35:29 Viral upper respiratory tract infection [id number] J06.9 [id number] MANOLO CALDERON MD [facility] [address] [place] [id number] 09/05/2024 11:32:42 09/05/2024 14:18:29 Chronic low back pain 372271980 M54.50 G89.29 Health Concerns Section Related Observation LastModified by Organization Detai ls LastModified Time None Recorded Concern Status LastModified by Organization Details LastModified Time None Recorded Advance Directives Directive None Recorded Payers Insurance Date Sequence Insurance Name Policy Number Policy Adkins Covered Member ID Adkins Member ID Guarantor Name 09/05/2024 1 [facility] - DOS ON OR AFTER 2022 - DUAL ELIGIBLE - LONG-TERM OPTIONS AND ONE CARE (MEDICARE REPLACEMENT/ADV ANTAGE - HMO) Susy Benavides [id number] Susy Benavides Notes Date Note Type Note [...] talking. Unable to take a deep breath. [facility] HPI: Intelligence Officer Organization Information for Brian Saenz Business Legal Name: [id number] Address: [address] [place] [address], Guide Delegate: Clemente AMAYA No.: [id number] Intelligence Officer POC Test Results from Brian Saenz - MACRO Rapid influenza antigen (17:53:41) Flu: - Rapid COVID antigen (17:53:42) COVID: - Rapid strep test (17:53:45) Strep: - ..................................... ..................................... ..................................... .............................. Intelligence Officer Note From Brian Saenz: [facility]. Pt presents complaining [...] and rhonchi on lung exam. Consulted with [facility] Dr. Awad who ordered duoneb treatment and 40 mg of prednisone both given on scene. Pt reports improvement in breathing after treatment. Rx sent to patients pharmacy. Reviewed red flags for ED. Pt education provided. ..................................... ..................................... ..................................... .............................. [facility] Consulted: Lory Awad ..................................... ..................................... ..................................... .............................. Disposition: Fulfilled Lory Awad MD [address] [place] [address],[address] [place] [address], [place], [phone] , [employer] 03/23/2024 19:08:41 025 text/[facility] Nurse Triage Notes (Kacey Cm - RN): Reason For Request: Pt reporting suspected back sprain, 8 out of 10 pain, going on day 2 of pain.back pain Chief Complaints: Back pain PMH: Chronic Bronchitis, Chronic Back Pain, Severe Persistent Mental Illness (SPMI) Pain Assessment: Level 8 out of 10 Comments: [employer] verified the name//address and phone number. Pt [...] treatment if needed ..................................... ..................................... ..................................... .............................. Intelligence Officer Note From Jacque Senior: Dispatched for the [...] strong radial pulse, - FAST-ED. Consulted with [facility] Dr. Galvan. Dr. Galvan recommended 15 mgs [...] All times approx. ..................................... ..................................... ..................................... .............................. [facility] Consulted: Anita Galvan ..................................... ..................................... ..................................... .............................. Disposition: Fulfilled Anita Galvan MD [address] [place] [address], [phone] [facility] [employer] 04/14/2024 21:33:16 025 text/ht [facility] Nurse Triage [...] Allergies Reviewed at 06/11/2024 - 08:32 Comments: [employer] verified the Pt.'s name//address and phone number. Education provided on the response time and the Pt. was advised to monitor reported s/s and seek emergency treatment if needed. Pt reports feeling unwell with a migraine - Same started yesterday - Reports taking Sumatriptan with no relief - Light and sound sensitivity - Denies fever - Denies nausea and vomiting - Wellness check requested Intelligence Officer Organization Information for Prosper Villegas [employer] Legal Name: [facility] Address: [address] [place] [address], [place] [address], Guide Delegate: Jayden Mccann MD CLIA No.: [id number] Intelligence Officer POC Test Results from Prosper Villegas [facility] (10:56:01) pH: 7.37 pH units pCO2: 53.3 mmHg pO2: 20.5 mmHg Na: 143 mmol/L K: 3.9 mmol/L iCa: 1.22 mmol/L Cl: 105 mmol/L TCO2: 29.9 mEq/L Hct: 38 % Hb: 12.8 g/dL Glu: 93 mg/dL Lac: 0.71 mmol/L Cr: 0.98 mg/dL BUN: 9 mg/dL A mmol/L HCO3: 30.6 mmol/L ..................................... ..................................... ..................................... .............................. Intelligence Officer Note From CarolnatashaProsper hurtado: This 53-year-old female with a history including [...] questions and is agreeable to this plan. [facility] Lab Orders: BMP, serum or plasma: Performed hemoglobin + hematocrit, blood: Performed [facility] Medication Orders: ketorolac 30 mg/mL injection solution: Administered diphenhydramine 50 mg/mL injection solution: Administered sodium chloride 0.9 % intravenous solution: Administered ondansetron HCl (PF) 4 mg/2 mL injection solution: Administered ..................................... ..................................... ..................................... .............................. [facility] Consulted: Benjy Downs ..................................... ..................................... ..................................... .............................. Disposition: Fulfilled Grady Downs MD [address] [place] [address],[address] [place] [address], [place], [address] , [employer] 06/11/2024 14:56:07 025 text/ht [facility] Nurse Triage Notes (Kacey [...] Migraine, Asthma PMH Reviewed at 07/19/2024 - 15:07 Allergies Reviewed at 07/19/2024 - 15:07 Comments: [...] signs of when to seek emergency care. Intelligence Officer Organization Information for Nathan Larsen [employer] Legal Name: [facility] Address: [address] [place] [address], [place] [address], Guide Delegate: Jayden AMAYA No.: [id number] Intelligence Officer POC Test Results from Nathan Larsen Rapid COVID antigen (20:53:34) COVID: - Rapid influenza antigen (20:53:35) Flu: - ..................................... ..................................... ..................................... .............................. Intelligence Officer Note From Nathan Larsen: Patient alert and [...] work of breathing after walk from elevator. [facility] recommends supportive care, will prescribe albuterol to patient s local pharmacy. Patient reports she will use nebulizer before bed today and four times per day while ill. Red flags patient education discussed. Patient demonstrates understanding of care and plan. [facility] Lab Orders: rapid SARS CoV 2 Ag, QL IA, respiratory specimen: Performed rapid flu (A+B): Performed ..................................... ..................................... ..................................... .............................. [facility] Consulted: Robert Busby ..................................... ..................................... ..................................... .............................. Disposition: Fulfilled Robert Busby MD [address] [place] [address], [phone] [facility] [employer] 07/19/2024 22:48:36 025 text/ht [facility] Nurse Triage Notes (Kacey Cm - RN): Reason For Request: Patient has back pain. Chief Complaints: Back Pain PMH: Chronic Bronchitis, Chronic Back Pain, Severe Persistent Mental Illness (SPMI), Migraine, Asthma, Bipolar Disorder PMH Reviewed at 09/05/2024:17 Allergies Reviewed at 09/05/2024 - :17 Pain Assessment: Level 8 out of 10 [...] in the care of this patient. The [place] encounter was closed before the medic filled the visit in the [employer] platform, so the medic summary did not crossover into the [place] encounter. Thus I am entering it here: [...] ProvidedMedication (IM), Patient EducationReferring Provider Labs---C Lab Orders---[facility] Medication Ordersketorolac 30 mg/mL injection solution - Inject 1 mL by intravenous route.: AdministeredDispositionFulfilledWas patient sent to ED?[facility] consulted on the case?Yes - Manolo Calderon MD [address] [place] [address],[address], [place], [phone] , [place] [employer] 09/11/2024 17:32:22 OBGyn Episode No OBEpisode recorded.
[2024-10-20 10:42] LABS: MANUAL DIFF FLAG NO
[2024-10-20 10:50] LABS: Hematocrit 38.6 % (37.0-47.0); Hemoglobin 12.7 g/dl (12.0-16.0); Imm Gran Abs Auto 0.01 X10*3/uL (0.00-0.03); Imm Gran Pct Auto 0.2 % (0.0-0.4); Lymphocytes Absolute Auto 1.8 X10*3/uL (1.2-4.9); Mean Corpuscular HGB Conc 32.9 g/dl (31.0-35.0); Mean Corpuscular Hemoglobin 31.1 pg (27.0-33.0); Mean Corpuscular Volume 94.4 fL (80.0-98.0); NRBC Abs Auto 0.000 X10*3/uL (0.0-0.012); NRBC Pct Auto 0.0 /100WBC (0.0-0.2); Platelet Count 179 X10*3/uL (160-400); Red Blood Count 4.09 X10*6/uL (4.20-5.50); White Blood Count 5.5 X10*3/uL (4.8-10.8)
[2024-10-20 11:21] LABS: Alanine Aminotransferase 14 U/L (0-31); Albumin Level 4.3 g/dL (3.5-5.0); Alkaline Phosphatase 31 U/L (39-117); Anion Gap 11 (12-20); Aspartate Amino Transferase 15 U/L (5-31); Blood Urea Nitrogen 14 mg/dL (9-16); Calcium 9.2 mg/dL (8.4-10.2); Carbon Dioxide 25 mmol/L (22-29); Chloride 111 mmol/L (96-108); Estimated Glomerular Filt Rate 59; Magnesium 2.1 mg/dL (1.6-2.6); Potassium 3.8 mmol/L (3.3-5.1); Sodium 143 mmol/L (135-145); Total Protein 6.1 g/dL (6.5-8.0)
[2024-10-20 11:39] LABS: Folate 8.0 ng/mL (> or = 4.0); Vitamin B12 243 pg/mL (200-900)
== END 2024-10-20 08:41 | disposition home or self-care (01) ==
LOC: HO.HMGCX 08:40
PROVIDERS: PCP Nurse Practitioner Family; Visit Provider Nurse Practitioner Family
DX: M54.9 Dorsalgia, unspecified (principal); G89.29 Other chronic pain; M54.6 Pain in thoracic spine; R74.8 Abnormal levels of other serum enzymes; M41.9 Scoliosis, unspecified
CPT/HCPCS: 36415; 72040; 72070; 80053; 82390; 82607; 82746; 83735; 84630; 85025

== ENCOUNTER → 2024-10-20 08:44 | Outpatient (BNV) | payer OTHER, SELFPAY | PROVIDERS: PCP Nurse Practitioner Family; Visit Provider Radiology Diagnostic Radiology | DX: M54.6 Pain in thoracic spine (principal); M54.9 Dorsalgia, unspecified | CPT/HCPCS: 72040; 72070 ==

== ENCOUNTER 2024-12-19 06:56 | Outpatient (AMB) | payer OTHER, SELFPAY ==
--- NOTE | 2024-12-19 07:34 | A.OFFPC_ITS ---
Intake Visit Reasons: back pain follow up/referrals/ android Allergies aripiprazole (From ABILIFY) Allergy (Severe, Verified 10/10/24 13:21) ANAPHYLAXIS divalproex sodium (From DEPAKOTE) Allergy (Unknown, Verified 10/10/24 13:21) UNKNOWN penicillin V Allergy (Unknown, Verified 10/10/24 13:21) Diarrhea Penicillins Adverse Reaction (Unknown, Verified 10/10/24 13:21) diarrhea From SEROQUEL Allergy (Unknown, Uncoded 10/10/24 13:21) UNKNOWN Medication List - Last Reconciled 12/19/24 by Nathan Hale, [facility] albuterol sulfate 90 mcg/actuation 2 puffs inhalation Q6H albuterol sulfate 2.5 mg inhalation PRN aspirin 81 mg PO DAILY Ca-D3-mag ae-qxss-ive-lidia-bor 600 mg calcium- 20 mcg-50 mg (Calcium 600-D3 Plus (mag-zinc)) 1 tab PO BID clonazepam (Klonopin) mg PO diphenhydramine HCl (Banophen) 25 - 75 mg PO BEDTIME PRN gabapentin 400 mg PO BEDTIME hydroxyzine pamoate 50 mg PO BEDTIME PRN lamotrigine 100 mg PO BEDTIME magnesium oxide 400 mg PO DAILY prazosin 4 mg PO BEDTIME prazosin 1 mg PO BID risperidone 0.5 mg PO DAILY sennosides-docusate sodium 8.6-50 mg (Senexon-S) 3 tabs PO BEDTIME sertraline 50 mg PO DAILY sumatriptan succinate 0 mg PO topiramate 50 mg PO DAILY Tobacco use date assessed: 10/10/24 Dental Screening Dental Screen Date: 10/10/24 HPI back pain follow up/referrals/ android HPI Details History of Present Illness The patient is a 54-year-old female presenting with chronic rhomboid back pain. The pain has been persistent, primarily affecting the rhomboid and scapular regions. In October, thoracic and cervical X-rays indicated scoliosis without any acute abnormalities. Massage therapy is recommended to help manage her symptoms, with a referral being arranged. The patient is expected to follow up after completing the therapy to discuss her progress. Review of Systems - Musculoskeletal: Reports chronic rhomb oid back pain. Denies radicular symptoms in bilateral upper extremities. - Neurological: Denies loss of use of an extremity. - General: Denies fevers, chills. - Cardiovascular: Denies chest pain. - Respiratory: Denies shortness of breat h. Plan 1. Chronic Rhomboid Back Pain Massage therapy is recommended to manage chronic rhomboid back pain, with a referral provided for the therapy sessions. The patient is to follow up after completing the therapy to assess the treatment's effectiveness. 2. Scoliosis Scoliosis was noted on X-rays, but no acute intervention is required at this time. Discussion Notes I discussed with the patient the chronic nature of her rhomboid back pain and the potential benefits of massage therapy as a non-invasive treatment option. A referral for massage therapy will be provided, and I advised her to contact me after completing the sessions to discuss her progress. Patient Instructions - Attend massage therapy sessions as ref erred. - Contact the clinician after completing the therapy sessions to report on progress. [facility] Medical History Nicotine dependence, cigarettes, uncomplicated Bipolar 1 disorder Surgical History History of partial hysterectomy Social History Alcohol intake: never Patient Tobacco Use Status: Current everyday Tobacco user (Vaping) service: No Current occupational exposures/hazards: No Cognitive needs: No Hearing needs: No Vision needs: No Questionnaire Thrive Questionnaire Date Thrive assessed: 10/10/24 I am a: Patient What is your living situation today?: I have a steady place to live Within the past 12 months, did the food you bought not last and you didn't have the money to get more?: Sometimes True Within the past 12 months, did you worry whether your food would run out before you got money to buy more?: Sometimes True Do you have trouble paying for medicines?: No Do you have trouble getting transportation to medical appointments?: No Do you have trouble paying your heating and electricity bill?: Yes Do you have trouble taking care of your child, family member or friend?: No Do you have trouble with day-to-day activities such as bathing, preparing meals, shopping, managing finances, etc.?: No Are you currently unemployed and looking for a job?: No Are you interested in more education?: No Please select the resources that you would like help with: None Currently or been in a relationship where the following occur: No concerns reported THRIVE Score: 3 SARTHAK-7 AMB Questionnaire SARTHAK-7 Date SARTHAK - 7 assessed: 10/10/24 Source: Developed by Drs. Andi Rawls, Ruby Lamar, Jeff Teixeira and colleagues, with an educational william from [employer]. Physical exam (Primary Care) Tobacco/Smoking Status: Tobacco use Status Tobacco use date assessed 10/10/24 10/10/24 12:42 Patient Tobacco Use Status Current everyday Tobacco 10/10/24 12:54 Thrive Assessment: Date of Thrive Assessment Date Thrive assessed 10/10/24 10/10/24 12:42 Currently or been in a relationship where the following occur: No concerns reported Telehealth Telehealth Telehealth Platform: [facility] Location of provider rendering services: practice address Location of patient: address on file Telehealth method: video Patient verbally consented to treatment: Yes Patient verbally consented to billing insurance company: Yes Patient informed of any privacy concerns related to visit: Yes Minutes spent on Phone/Video with Pt.: 12 Coding Level of Care Code Tele Est Pt Level 3 (44279) Diagnoses Lower thoracic back pain M54.6 Upper back pain, chronic M54.9; G89.29 Assessment & Plan Assessment & Plan (1) Lower thoracic back pain: Code(s): M54.6 - Pain in thoracic spine Category: Medical (2) Upper back pain, chronic: Code(s): M54.9 - Dorsalgia, unspecified; G89.29 - Other chronic pain Category: Medical Plan . Orders: Referrals Massage Therapy Referral G89.29 - Other chronic pain, M54.9 - Dorsalgia, unspecified
== END 2024-12-19 09:42 | disposition home or self-care (01) ==
LOC: HO.HMCC 06:57
PROVIDERS: PCP Nurse Practitioner Family; Visit Provider Nurse Practitioner Family
DX: M54.6 Pain in thoracic spine (principal); M54.9 Dorsalgia, unspecified; G89.29 Other chronic pain

== ENCOUNTER 2025-02-02 10:43 | Outpatient (AMB) | payer OTHER, SELFPAY ==
--- NOTE | 2025-02-02 08:11 | A.OFFVIS_ITS ---
Intake Visit Reasons: Former Smoker Allergies aripiprazole (From ABILIFY) Allergy (Severe, Verified 10/10/24 13:21) ANAPHYLAXIS divalproex sodium (From DEPAKOTE) Allergy (Unknown, Verified 10/10/24 13:21) UNKNOWN penicillin V Allergy (Unknown, Verified 10/10/24 13:21) Diarrhea Penicillins Adverse Reaction (Unknown, Verified 10/10/24 13:21) diarrhea From SEROQUEL Allergy (Unknown, Uncoded 10/10/24 13:21) UNKNOWN HPI HPI Former Smoker: Details: Initial visit for this 54yo smoker with a []PYH. Patient started smoking at age 13 for 34 years at 1-1ppd. She quit cigarettes 7 years ago and transitioned to vaping. . Denies marijuana use. Denies second hand smoke exposure. Denies exposure to chemicals or substances like asbestos. . Family history of lung cancer. Maternal aunt age 60. Notes personal history of Cervical cancer - s/p hysterectomy at 37. Denies chest [address] in last year. . Denies recent travel outside the [place]. Denies recent respiratory illness or recent hospitalization for respiratory issues. Denies testing positive for COVID. Admits receiving COVID Vaccine. . Reports history of FRIAS to thyroid for Graves in 2015. Denies fever, chills, new/worsening cough, hemoptysis, hoarseness or dysphagia. Denies significant chest pain, significant dyspnea or unintentional weight loss. Patient Lung Cancer Screening Questionnaire reviewed with patient by provider. . Shared Decision Making Completed. Patient meets criteria. Discussed in detail with patient, the risk vs benefit of LDCT screening. Patient consents to proceed with scan. Discussed smoking cessation. PFSH Medical History (Updated 02/02/25 @ 11:08 by Bridget Coles PA-C) History of cervical cancer Bipolar 1 disorder Hypothyroidism History of Graves' disease Nicotine dependence, cigarettes, uncomplicated Vitamin D deficiency Surgical History (Updated 02/02/25 @ 10:58 by Bridget Coles PA-C) History of partial hysterectomy Family History (Updated 02/02/25 @ 11:04 by Bridget Coles PA-C) Maternal Aunt Lung cancer Social History (Updated 02/02/25 @ 11:04 by Bridget Coles PA-C) Alcohol intake: never Patient Tobacco Use Status: Current everyday Tobacco user (Vaping) Years Smoked: (onset 13yo, 1/2-1ppd x 34yrs, now vaping - 25pyh) service: No Current occupational exposures/hazards: No Cognitive needs: No Hearing needs: No Vision needs: No Assessment & Plan Assessment & Plan (1) Nicotine dependence, cigarettes, uncomplicated: Comment: (onset 13yo, 1/2-1ppd x 34yrs, now vaping - 25pyh) Code(s): F17.210 - Nicotine dependence, cigarettes, uncomplicated Category: Medical Plan: - SDM visit completed today in office. - Patient meets criteria for LDCT for lung cancer screening purposes and is asymptomatic. - Smoking cessation counseling offered. Patients can always call [phone]. - Will arrange for a LDCT scan of the chest for screening purposes at [facility]. - Risks, benefits, and alternatives were discussed in detail and the patient agrees to proceed. - Risks discussed include but are not limited to: radiation exposure, anxiety during testing and while awaiting results, false negatives, false positives and possibility of additional intervention such as further imaging or surgical procedures for benign disease. - Benefits are obviously detection of lung cancer at an early stage which can lead to improved outcomes. - Discussed the importance of screening program compliance with adherence to yearly LDCT scan as scheduled - or sooner interval scans for personalized screening regimen. - Discussed follow up plan. Our office will send a letter discussing results and if needed set up phone call and office visit based on CT findings. - Patient educated on results categorization and the management decisions for suspicious findings potentially found on the screening LDCT scan. Any patient with a Lung RADS score of 3 or 4 will be reviewed by a multidisciplinary team at [facility] to form a plan of action in regards to scan findings. - If further work up is warranted for a suspicious lung finding this will be followed by the Lung Cancer Screening program in conjunction with the Thoracic Surgery Department at [facility]. - A copy of the office note and LDCT will be sent to the patient's PCP - as well as documentation on any associated further plans of care. - Incidental findings on LDCT are the PCP's responsibility. These findings are indicated with an S finding on the LDCT Assessment. A note discussing the f indings will be sent to the PCP who is then responsible for further management. - All questions answered.? Coding Level of Care Code Lung Cancer Screening G0296 Diagnoses Nicotine dependence, cigarettes, uncomplicated F17.210
== END 2025-02-02 10:57 | disposition home or self-care (01) ==
LOC: HO.HPS 10:44
PROVIDERS: PCP Nurse Practitioner Family; Referring Provider Nurse Practitioner Family; Visit Provider Physician Assistant Medical
DX: F17.210 Nicotine dependence, cigarettes, uncomplicated (principal)
CPT/HCPCS: G0296

== ENCOUNTER 2025-02-02 11:03 | Outpatient (REF) | payer OTHER, SELFPAY ==
--- NOTE | ~2025-02-02 | CT_ITS ---
EXAMINATION: CT LUNG SCREENING HISTORY: F17.210 - Nicotine dependence, cigarettes, uncomplicated TECHNIQUE: Low dose axial images were obtained from the sternal notch to upper abdomen without IV contrast per standard departmental protocol. Sagittal and coronal reformatted images were also obtained and reviewed. One or more of the following techniques was used for dose reduction: Automated exposure control, adjustment of the mA and/or kV according to patient size, use of iterative reconstruction technique. DLP: 40 mGy-cm COMPARISON: There are no prior studies available for comparison. FINDINGS: Lung nodules: There is a tiny 2 mm nodule in the right lower lobe (series 4, image 66). No suspicious pulmonary nodules are identified. Emphysema: none Coronary Calcification: none Aortic Arch Calcification: mild Potentially Significant Incidentals : none Additional Chest Findings: There is no pleural or pericardial effusion. No mediastinal or axillary lymphadenopathy is identified. Visualized upper abdomen: The visualized portions of the liver, spleen, and adrenals have an unremarkable unenhanced appearance. CT/CT lung screening IMPRESSION: No suspicious pulmonary nodules are identified. LUNG-RADS ASSESSMENT: Lung-RADS 2: Benign MANAGEMENT: Continue annual screening with LDCT in 12 months Category S: N/A Electronically signed by: Andi Carter MD 02/02/2025 11:47 AM EDT
== END 2025-02-02 11:04 | disposition home or self-care (01) ==
LOC: HO.CT 11:03
PROVIDERS: PCP Nurse Practitioner Family; Visit Provider Physician Assistant Medical
DX: Z12.2 Encounter for screening for malignant neoplasm of respiratory organs (principal); F17.210 Nicotine dependence, cigarettes, uncomplicated
CPT/HCPCS: 71271; G0296

== ENCOUNTER → 2025-02-02 11:06 | Outpatient (BNV) | payer OTHER, SELFPAY | PROVIDERS: PCP Nurse Practitioner Family; Visit Provider Radiology Diagnostic Radiology | DX: F17.210 Nicotine dependence, cigarettes, uncomplicated (principal) | CPT/HCPCS: 71271 ==

== ENCOUNTER 2025-03-26 07:50 | Outpatient (AMB) | payer OTHER, SELFPAY ==
--- OUTSIDE RECORDS SUMMARY | 2025-03-23 23:59 | XMS_ITS | Continuity of Care Document ---
Author Organization [facility] lt Address [address] [place] [address]- Care Team Providers Care Shareholder Name Role Phone Not on Staff, PCP Primary Care Physician Unavail able Encounter [facility] Date(s): 02/21/25 - 03/23/25 [facility] Adult [address] [place] [address]- Encounter Type: Triage Allergies, Adverse Reactions, Alerts Substance Criticality Severity Reaction Reaction Severity Status penicillin rash Active alendronate Active Seroquel Active Depakote Active Nicoderm Active Trileptal 1 Active Abilify [...] Toxoid Vaccine (oldterm) 04/12/04 Given 1Result Comment: [id number] Checklist completed 2Result Comment: [id number] 3Result Comment: [02/01/2018] FLU [id number] 4Result Comment: [01/06/2017] [facility] [id number] 5Result Comment: [id number] 6Result Comment: [id number] 7Result Comment: [02/01/2018] PNEUMO [id number] 8Admin Note: declines 9Admin Note: not intromuscular rcvd elsewhere Medications Banophen 25 mg oral capsule 0 Refills, Maintenance, 03/22/24 2:32:00 PM EST, Partial fill upon patient request if the prescription is for a schedule II opioid drug. Start Date: 03/22/24 Status: Ordered Medication Dispense Status: Completed Total Allowed Fills: 1 Fills Dispensed: 0 clonazePAM 1 mg oral tablet 1 tablet = 1 mg, By Mouth, 2 times a day, and extra 0.5 tab as needed, 0 Refills, Maintenance, 06/15/18 1:47:56 PM EST, Tablet Start Date: 06/15/18 Status: Ordered Medication Dispense Status: Completed Total Allowed Fills: 1 Fills Dispensed: 0 gabapentin 800 mg oral tablet 0 Refills, Maintenance, 03/22/24 2:31:00 PM EST, Partial fill upon patient request if the prescription is for a schedule II opioid drug. Start Date: 03/22/24 Status: Ordered Medication Dispense Status: Completed Total Allowed Fills: 1 Fills Dispensed: 0 lamotrigine 100 mg oral tablet 100 mg, 1, tablet, By Mouth, Daily at bedtime, Refills 0, Maintenance, 04/19/23 10:17:00 AM EST, Partial fill upon patient request if the prescription is for a schedule II opioid drug. Start Date: 04/19/23 Status: Ordered Medication Dispense Status: Completed Total Allowed Fills: 1 Fills Dispensed: 0 Latuda 120 mg oral tablet 1 tablet = 120 mg, By Mouth, Daily, # 30 tablet, 0 Refills, Maintenance, 06/09/21 9:57:00 AM EST, Tablet, Partial fill upon patient request if the prescription is for a schedule II opioid drug. Start Date: 06/09/21 Status: Ordered Medication Dispense Status: Completed Quantity: 30.0 Unit: tablet Total Allowed Fills: 1 Fills Dispensed: 0 prazosin 2 mg oral capsule = 4 mg, By Mouth, Daily at bedtime, And one capsule prn, 0 Refills, Maintenance, 10/07/21 8:01:00 AMEDT, Partial fill upon patient request if the prescription is for a schedule II opioid drug. Start Date: 10/07/21 Status: Ordered Medication Dispense Status: Completed Total Allowed Fills: 1 Fills Dispensed: 0 risperiDONE 0.25 mg oral tablet TAKE 1 TABLET BY MOUTH EVERY DAY Start Date: 03/22/24 Status: Ordered Medication Dispense Status: Completed Total Allowed Fills: 1 Fills Dispensed: 0 sertraline 100 mg oral tablet 2 tablet = 200 mg, By Mouth, Daily at bedtime, # 60 tablet, 0 Refills, Maintenance, 06/09/21 9:58:00AM EST, Tablet, Partial fill upon patient request if the prescription is for a schedule II opioid drug. Start Date: 06/09/21 Stop Date: 05/19/23 Status: Ordered Medication Dispense Status: Completed Quantity: 60.0 Unit: tablet Total Allowed Fills: 1 Fills Dispensed: 0 sertraline 50 mg oral tablet 0 Refills, Maintenance, 03/22/24 2:31:00 PM EST, Partial fill upon patient request if the prescription is for a schedule II opioid drug. Start Date: 03/22/24 Status: Ordered Medication Dispense Status: Completed Total Allowed Fills: 1 Fills Dispensed: 0 SUMAtriptan 25 mg oral tablet 1 tablet, By Mouth, Daily, PRN as needed for migraine headache, # 9 tablet, 5 Refills, Maintenance,10/04/24 5:09:00 PM EDT, [facility]/pharmacy #[id number], 161.6, cm, 10/03/24 13:31:00 EDT, Height, 62.6, kg, 08/09/24 14:36:00 EDT, Dry Weight Start Date: 10/04/24 Status: Ordered Medication Dispense Status: Completed Quantity: 9.0 Unit: tablet Total Allowed Fills: 6 Fills Dispensed: 0 Vitamin D3 1000 intl units oral capsule 1 capsule = 25 mcg, By Mouth, Daily, # 100 capsule, 0 Refills, Maintenance, 06/09/21 9:57:00 AM EST,Capsule, Partial fill upon patient request if the prescription is for a schedule II opioid drug. Start Date: 06/09/21 Status: Ordered Medication Dispense Status: Completed Quantity: 100.0 Unit: capsule Total Allowed Fills: 1 Fills Dispensed: 0 Problem List Condition Confirmation Course Effective Dates [...] finding difficulty Confirmed Active 1counsel many times, [id number] kit Patient Care team information Care Team Personnel Name: Kim Meade NP Position: [facility] PCO Associate Professional Member Role: [employer] Provider Address: [address] [place] [address] Telecom: Name: Not on Staff, PCP Position: [facility] Physician (General Medicine) Member Role: PCP Care Team Related Persons Name: MARIAH LOPEZ Name: MARY WARD Name: SARAHI WARD Name: ULICES ABARCA Name: OBDULIA ABARCA Insurance Providers Guarantor name: DILLON WARD Health Plan Information #: 1 Payer: [facility] Payer Identifier: NA Member Number: [id number] Group Number: [id number] Subscriber Identifier: NA Relationship to Subscriber: self Coverage Type: Medicare Managed Care (Includes Medicare Advantage Plans) Coverage Verification Date: NA Telecom: NA Address: NA
--- NOTE | 2025-03-26 07:57 | MHC.OFFVIS ---
Vital Signs 03/26/25 08:05 Height 5 ft 4 in Weight 130 lb 6 oz BMI 22.4 BP 112/78 Blood Pressure Location Lt brachial Position Sitting Pulse 69 Pulse Source Pulse Oximeter Pulse Oximetry (%) 99 Oxygen Delivery Method Room Air Intake Visit Reasons: Pain in Thoracic Spine Intake Note: Pain today [address] [employer] Required: No Accompanied by: Self / Same As Patient Allergies aripiprazole (From ABILIFY) Allergy (Severe, Verified 03/26/25 08:06) ANAPHYLAXIS divalproex sodium (From DEPAKOTE) Allergy (Unknown, Verified 03/26/25 08:06) UNKNOWN penicillin V Allergy (Unknown, Verified 03/26/25 08:06) Diarrhea baclofen Adverse Reaction (Unknown, Verified 03/26/25 08:06) manic Penicillins Adverse Reaction (Unknown, Verified 03/26/25 08:06) diarrhea From SEROQUEL Allergy (Unknown, Uncoded 10/10/24 13:21) UNKNOWN HPI Comments Details: The patient is a 54 year old female presenting for evaluation of chronic upper back pain. She has had upper back pain for approximately two years, which she believes started from an improper yoga posture. The pain is described as tightness and throbbing, located in the neck region, between the shoulder blades, and specifically in the rhomboid, trapezius, and levator scapulae muscles. It can reach a severity of 8/10, is worse after exercise, and lasts all day, although it is better in the mornings at a 5/10. Previously, the pain radiated to her hands and arms with numbness and tingling, but this is no longer the case. Associated symptoms include occasional headaches and waking from sleep due to pain. She has tried numerous treatments, including ibuprofen, heat, ice, lidocaine patches, massage therapy, chiropractic manipulation, physical therapy, and acupuncture, with physical therapy and acupuncture reported as not helpful. She underwent two steroid injections; the first offered relief for a couple of weeks, but the second was ineffective. The patient's medical history includes thoracolumbar scoliosis, confirmed by x-ray. She reports having osteoporosis, for which she receives infusions at [facility] after having an allergic reaction to a different medication, though this diagnosis is not in her chart and she has not had a bone scan. She also has a history of Graves' disease and hypothyroidism treated with radiation (FRIAS) about 10-15 years ago and currently takes Synthroid. Her psychiatric history includes bipolar disorder and PTSD, for which she sees a Psychiatrist. Past surgical history is notable for a partial hysterectomy, and she denies any history of spine surgery. Pain Description - Onset and Timing: The patient reports the onset of pain was approximately two years ago, which she attributes to an improper yoga posture. - Quality and Character: Pain is described as tightness, throbbing, pulsing, pounding, cramping, pinching, tugging, spreading, and squeezing. - Primary Location: Pain is localized to the upper back, between the shoulder blades, and the neck region, specifically involving the rhomboid, trapezius, and levator scapulae muscles. - Radiation: The pain used to radiate to her hands and arms with associated numbness and tingling, but this is no longer occurring. - Severity: Pain is rated 5/10 in the morning and increases to 8/10 after exercise, lasting all day. - Exacerbating Factors: Any movement can increase the pain, and she has noticed an increase in pain since resuming yoga. - Relieving Factors: Stretches learned from a chiropractor, daily use of a heating pad, and hot showers provide relief. - Interference with Function: The pain sometimes wakes her from sleep but does not prevent her from performing personal care activities. Pain Management - Affect: The patient reports a history of bipolar disorder and PTSD. - Analgesia: Current pain is 5/10 in the morning and can increase to 8/10. - She uses Tylenol and ibuprofen. - Past trials of physical therapy and acupuncture were not helpful. - Two prior steroid injections provided minimal to no relief. - Adverse Effects: The patient reported that baclofen made her feel manic and interfered with her psychiatric medications. - Activities of Daily Living: The pain does not interfere with her ability to perform personal care. - She is able to participate in exercises, though it increases her pain. - Aberrant Drug-Related Behaviors: The patient reported taking Flexeril that was prescribed to her neighbor because she was in pain and had not been prescribed a muscle relaxant. Oswestry Low Back Pain Disability Score=24 [facility] Medical History (Updated 03/26/25 @ 08:31 by MAYTE Perry) History of cervical cancer Bipolar 1 disorder Hypothyroidism History of Graves' disease Nicotine dependence, cigarettes, uncomplicated Vitamin D deficiency Surgical History History of partial hysterectomy Family History (Updated 02/02/25 @ 11:04 by Bridget Coles PA-C) Maternal Aunt Lung cancer Social History (Updated 02/02/25 @ 11:04 by Bridget Coles PA-C) Alcohol intake: never Patient Tobacco Use Status: Current everyday Tobacco user (Vaping) Years Smoked: (onset 13yo, 1/2-1ppd x 34yrs, now vaping - 25pyh) service: No Current occupational exposures/hazards: No Cognitive needs: No Hearing needs: No Vision needs: No Review of Systems Narrative - Musculoskeletal: Reports chronic upper back pain with tightness. - Neurological: Reports occasional headaches. - Denies current numbness or tingling in the extremities but reports a history of it. - Psychiatric: Reports history of bipolar disorder and PTSD. - Sleep: Reports pain sometimes wakes her at night. Const All systems reviewed & are unremarkable except as noted in HPI and below ENT Reports Normal hearing present Neuro Reports Normal hearing present and Denies Sensory deficit (Neuro) Physical Exam Vital Signs: Last Vital Signs Pulse 69 03/26/25 08:05 BP 112/78 03/26/25 08:05 Pulse Ox 99 03/26/25 08:05 Oxygen Delivery Method Room Air 03/26/25 08:05 BMI result Body Mass Index 22.4 General: Appears afebrile. Alert and oriented. Mood and affect appropriate. Follows and participates in conversation appropriately. Respiratory effort is unlabored. No cough. Able to transition from sit to stand unassisted. Ambulates with bilaterally normal heel strike and toe off. Eyes Pupils: Equal, round and reactive pupils present Neck Neck: Yes normal visual inspection, Yes no lymphadenopathy, Yes supple, No anterior neck swelling, Yes no JVD, No prominent supraclavicular fat pad and No prominent dorsocervical fat pad Back/Spine/Pelvis Other: Patient is able to walk and stand on heels and tip toes with no difficulties demonstrating good motor tone. No limping. Can flex forward to 80-90 degrees and extend to 5-10 degrees before experiencing lumbar pain. Demonstrates 5/5 strength of quadriceps bilaterally as well as flexion/dorsiflexion of bilateral feet against resistance. 2+ pedal pulses bilaterally. Seated/Supine straight leg rise with dorsiflexion negative bilaterally. +2 patellar and achilles reflexes bilaterally. Facet loading test positive bilaterally. Rigo sign, Louis?s, Gaenslen, Pelvic compression and Stinchfield tests are negative/positive bilaterally. No groin pain with I/E hip rotations. Significant paraspinals tenderness mostly on the right/left side, thoracic/mid and lower back. Valsalva maneuver negative. Cervical Spine: cervical muscular tenderness, pain with cervical ROM (Limited ROM, pain with lateral rotations and extension), No Cervical spine scars present, cervical spasm, No Cervical spine tenderness and No step off deformity Thoracic/Lumbar Spine: thoracic and lumbar spine normal to inspection, No Thoracic/lumbar spine scar(s), Lasegue's sign negative, straight leg raise negative bilaterally, pain with thoraco-lumbar ROM, thoraco-lumbar ROM limited, No thoracic spinal tenderness and lumbar spinal tenderness at L4 and at L5 Sacroiliac joints: bilaterally nontender Neuro General: no focal motor deficits, CN's II-XI intact bilaterally and deep tendon reflexes 2+ bilaterally Cranial nerves: Yes Equal, round and reactive pupils present and Yes Normal hearing present Cognition (Neuro): normal cognition Gait exam (Neuro): Normal gait present Motor exam (neuro): 5/5 motor strength present throughout, no tremor noted and Motor abnormalities not present Sensory Exam: No Sensory deficit (Neuro) Results Reviewed Results Reviewed: XR CERVICAL SPINE 10/20/24 CLINICAL INFORMATION: M54.9 - Dorsalgia, unspecified COMPARISON: Correlated to CT dated January 04, 2019. TECHNIQUE: AP and lateral views FINDINGS: Craniocervical junction is intact. No acute cortical disruption or malalignment. No lytic or blastic lesions. Upper airway is patent. Edentulous. Radiopaque material in the oral cavity. IMPRESSION: No acute fracture or listhesis. XR THORACIC SPINE 10/20/24 CLINICAL INFORMATION: M54.6 - Pain in thoracic spine COMPARISON: None available. TECHNIQUE: AP and lateral views FINDINGS: S-shaped curvature of the thoracolumbar spine. No acute cortical disruption or malalignment. No lytic or blastic lesions. IMPRESSION: Scoliosis, thoracolumbar spine. Assessment & Plan Assessment & Plan (1) Lower thoracic back pain: Code(s): M54.6 - Pain in thoracic spine Category: Medical (2) Lower back pain: Code(s): M54.50 - Low back pain, unspecified Category: Medical (3) Muscle spasms of neck: Code(s): M62.838 - Other muscle spasm Category: Medical (4) Scoliosis of thoracolumbar spine: Code(s): M41.9 - Scoliosis, unspecified Category: Medical Plan The immediate plan involves obtaining comprehensive medical records from [facility], including from the infusion center, to clarify the patient's medical history, specifically to confirm the reported diagnosis of osteoporosis and to review past pain management interventions. This information is critical as a confirmed osteoporosis diagnosis would preclude the use of steroid injections as a future treatment option. For symptomatic relief of muscle spasms and pain, cyclobenzaprine (Flexeril) will be prescribed. The patient has been instructed to start with one pill at bedtime and was counseled on the importance of this medication from her psychiatric medications by at least two to four hours. She was explicitly advised not to combine cyclobenzaprine with Klonopin or gabapentin and warned about potential drowsiness and the need to avoid driving early in the am until she understands how the medication affects her. Patient was also instructed to avoid alcohol while taking this medication; she declined alcohol consumption. The patient is encouraged to continue with her current self-management strategies, including daily stretching exercises, heat application via heating pad, and hot showers, as these have provided some benefit. While further interventional options such as nerve stimulation and radiofrequency ablation were mentioned, any decision regarding these will be deferred until after a review of her medical records. All questions and concerns have been answered and patient agreed with the treatment plan. Follow up for old records/imaging and sooner as needed. Patient was informed and verbally consented to the use of an ambient scribe for clinic note documentation during this visit. Medications: New cyclobenzaprine 10 mg (2 x 5 mg) PO BEDTIME PRN 60 tabs 0RF muscle spasm 30 days M41.9 - Scoliosis, unspecified, M54.50 - Low back pain, unspecified, M54.6 - Pain in thoracic spine, M62.838 - Other muscle spasm Coding Level of Care Code New Pt Level 4 (63534) Diagnoses Lower thoracic back pain M54.6 Lower back pain M54.50 Muscle spasms of neck M62.838 Scoliosis of thoracolumbar spine M41.9
[2025-03-26 08:05] VITALS: BP 112/78; PULSE 69; O2SAT 99; BMI 22.4
== END 2025-03-26 08:39 | disposition home or self-care (01) ==
LOC: HO.PMC 07:51
PROVIDERS: PCP Nurse Practitioner Family; Referring Provider Nurse Practitioner Family; Visit Provider Nurse Practitioner Family
DX: M54.6 Pain in thoracic spine (principal); M54.50 Low back pain, unspecified; M62.838 Other muscle spasm; M41.9 Scoliosis, unspecified
CPT/HCPCS: 99204

== ENCOUNTER → 2025-03-26 07:50 | Outpatient (BNVA) | payer OTHER, SELFPAY | PROVIDERS: PCP Nurse Practitioner Family; Referring Provider Nurse Practitioner Family; Visit Provider Nurse Practitioner Family | DX: M54.6 Pain in thoracic spine (principal); M54.50 Low back pain, unspecified; M41.9 Scoliosis, unspecified; M62.838 Other muscle spasm; Z71.82 Exercise counseling | CPT/HCPCS: 99202 ==